=== PATIENT | male | born 1975 | race Caucasian/White ===

== ENCOUNTER → 2018-09-24 08:38 | Outpatient (CLI) | payer OTHER, SELFPAY ==
--- NOTE | 2018-09-24 08:42 | DI.RAD.S_ITS ---
PROCEDURE: XR FOOT RT MIN 3V INDICATIONS: r great toe pain TECHNIQUE: 3 views of the foot were acquired. COMPARISON: None. FINDINGS: Bones: No dislocations. No suspicious bony lesions. There is a transverse fracture through the distal diaphysis of the first proximal phalanx, minimally displaced. Soft tissues: No tibiotalar joint effusion. Achilles tendon appears normal. IMPRESSION: First proximal phalanx fracture distally, but not extending into the articular surface. Near normal anatomic alignment. Dictated by: Abhinav Ybarra M.D. on 09/24/2018 at 8:56 Approved by: Abhinav Ybarra M.D. on 09/24/2018 at 8:58
== END ==
PROVIDERS: Visit Provider Physician Assistant
DX: M79.674 Pain in right toe(s) (principal); S92.911A Unspecified fracture of right toe(s), initial encounter for closed fracture
CPT/HCPCS: 73630

== ENCOUNTER → 2020-12-10 06:55 | Outpatient (CLI) | payer OTHER, SELFPAY ==
[2020-12-10 08:04] LABS: Add Manual Diff / Slide Review NO; Basophils Absolute Auto 100 /uL (0-100); Eosinophils Absolute Auto 300 /uL (0-450); Eosinophils Percent Auto 5.7 % (2-4); Hematocrit 46.3 % (41-53); Hemoglobin 15.7 g/dL (13.5-17.5); Lymphocytes Absolute Auto 1900 /uL (1100-4500); Lymphocytes Percent Auto 33.6 % (25-40); Mean Corpuscular HGB Conc 33.8 % (30-36); Mean Corpuscular Hemoglobin 29.5 PG (26-34); Mean Corpuscular Volume 87.3 fL (80-100); Monocytes Absolute Auto 500 /uL (0-900); Monocytes Percent Auto 9.3 % (3-14); Neutrophils Absolute Auto 2800 /uL (1500-7000); Neutrophils Percent Auto 50.4 % (50-75); Platelet Count 189 X10^3/uL (150-400); Red Cell Distribution Width 13.7 % (11.6-14.8); White Blood Cell Count 5.6 X10^3/uL (4.5-11.0)
[2020-12-10 08:11] LABS: Hemoglobin A1C% w Est Avg Glu 5.5 % (4.0-6.0)
[2020-12-10 08:12] LABS: Alanine Aminotransferase 47 IU/L (<50); Albumin 4.4 g/dL (3.5-5.0); Albumin Globulin Ratio 1.3 (1.0-2.8); Alkaline Phosphatase 49 U/L (38-126); Aspartate Aminotransferase 33 IU/L (17-59); BUN Creatinine Ratio 24.2 (6-22); Bilirubin Total 0.5 mg/dL (0.2-1.3); Blood Urea Nitrogen 22 mg/dL (9-20); Calcium 9.8 mg/dL (8.4-10.2); Carbon Dioxide 32 mmol/L (22-32); Chloride 108 mmol/L (98-107); Cholesterol 237 mg/dL (140-199); Estimated Glomerular Filt Rate > 60.0 mL/min (>60); Globulin 3.3 g/dL (1.7-4.1); Glucose 103 mg/dL (70-100); HDL Cholesterol 35 mg/dL (40-60); HEMOLYSIS < 15 (0-50); LDL Cholesterol Calculated 176 mg/dL (<100); Potassium 4.7 mmol/L (3.4-5.1); Sodium 142 mmol/L (137-145); Total Protein 7.7 g/dL (6.3-8.2); Triglycerides 132 mg/dL (35-150)
== END ==
PROVIDERS: PCP Family Medicine; Referring Provider Family Medicine; Visit Provider Family Medicine
DX: L30.9 Dermatitis, unspecified (principal); M10.9 Gout, unspecified
CPT/HCPCS: 36415; 80053; 80061; 83036; 84550; 85025

== ENCOUNTER 2021-04-01 15:04 | Emergency (ER) | payer OTHER, SELFPAY ==
[2021-04-01 15:12] VITALS: BP 131/89; PULSE 105; RESP 22; TEMP 37.5; O2SAT 95; BMI 43.0
[2021-04-01] MEDS: ACETAMINOPHEN 325 MG TABLET 975 MG PO (16:46)
--- NOTE | 2021-04-01 17:08 | ED_ITS ---
HPI - URI/Sore Throat <PUMA Ng - Last Filed: 04/01/21 21:00> General Chief Complaint: Upper Respiratory Symptoms Stated Complaint: POSITIVE COVID, O2 SATS ARE LOW Time Seen by Provider: 04/01/21 15:36 Source: patient Mode of arrival: Ambulatory Limitations: no limitations Related Data Home Medications Medication Instructions Recorded Confirmed febuxostat [Uloric] PO 09/24/18 12/02/20 Previous Rx's Medication Instructions Recorded triamcinolone acetonide 0.5 % 1 applic TOPICAL BID 7 Days #15 g 11/17/20 topical cream desonide 0.05 % topical cream 1 applic TOPICAL BID PRN #15 g 12/02/20 benzonatate 100 mg capsule 100 mg PO BID PRN #14 cap 04/01/21 (Ivone Crespo) Allergies Allergy/AdvReac Type Severity Reaction Status Date / Time No Known Drug Allergies Allergy Verified 12/02/20 13:36 <Raegan Stevenson MD - Last Filed: 04/01/21 19:09> History of Present Illness HPI Narrative: 45-year-old gentleman with no significant medical history presents with dyspnea on day 10 of his COVID course. His initially tested positive on the and he was negative he began having a significant cough on the and tested positive on the . He has a home oxygen monitor and yesterday notice that his oxygen saturations have been dropping. With walking around the house he had measured saturations as low as 88%. At rest with slow deep breathing he can get up to 98% and seems to be fairly consistently at 95- 96%. He describes myalgias, decreasing fevers, cough, significant fatigue he is no longer having nausea, vomiting no abdominal pain. He describes no significant palpitations. <Raegan Stevenson MD - Last Filed: 04/01/21 19:09> Review of Systems Narrative: Remainder of complete review of systems is otherwise unremarkable except for that included in the HPI. Patient History <PUMA Ng - Last Filed: 04/01/21 21:00> Medical History (Updated 04/01/21 @ 19:08 by Raegan Stevenson MD) Chicken pox COVID-19 determined by clinical diagnostic criteria Fractures (~1994) Gout (~2004) Hyperlipidemia Kidney disease Kidney stones Periorbital dermatitis Poor vision Shoulder pain (~1993) Surgical History Anesthesia History of kidney surgery Family History Father Hypertension Hyperlipidemia Mother Diabetes mellitus Sister Mental health problem Social History Smoking Status: Never smoker Smoking Status: Never smoker Substance Use Type: does not use Exam <PUMA Ng - Last Filed: 04/01/21 21:00> Initial Vital Signs Initial Vital Signs: Vital Signs Temperature 99.5 F 04/01/21 15:12 Pulse Rate 105 H 04/01/21 15:12 Respiratory Rate 22 04/01/21 15:12 Blood Pressure 131/89 04/01/21 15:12 Pulse Oximetry 95 04/01/21 15:12 <Raegan Stevenson MD - Last Filed: 04/01/21 19:09> Narrative Exam Narrative: General: Mildly ill-appearing, in no acute distress. Able to give a complete and coherent history. Well-nourished well-developed HEENT: Moist mucous membranes, normal sclera with reactive pupils, Respiratory: Lungs are clear to auscultation, Full and symmetrical air movement, speaking in full sentences. With 2 minutes of walking in the room saturations go as low as 93 and return to 95-96% as soon as he sits. Cardiac: Regular rate and rhythm no murmurs no bruits Skin: Warm and dry, no rashes Neurologic: Grossly neurologically intact with no obvious asymmetries or abnormalities Extremities: No trauma, well perfused Psych: Cooperative, appropriate insight and affect Initial Vital Signs Initial Vital Signs: Vital Signs Temperature 99.5 F 04/01/21 15:12 Pulse Rate 105 H 04/01/21 15:12 Respiratory Rate 22 04/01/21 15:12 Blood Pressure 131/89 04/01/21 15:12 Pulse Oximetry 95 04/01/21 15:12 Course <PUMA Ng - Last Filed: 04/01/21 21:00> Orders Ordered: ED Orders 04/01/21 18:17 XR chest 1V Stat Discontinued Medications Acetaminophen (Acetaminophen 325 Mg Tablet) 975 mg PO NOW ONE Stop: 04/01/21 16:42 Last Admin: 04/01/21 16:46 Dose: 975 mg Documented by: ALEIDANSO Benzonatate (Benzonatate 100 Mg Capsule) 100 mg PO NOW ONE Stop: 04/01/21 19:10 Last Admin: 04/01/21 19:20 Dose: 100 mg Documented by: OZILA Vital Signs Vital signs: Vital Signs - 8 hr 04/01/21 15:12 04/01/21 18:38 04/01/21 18:40 Temperature 99.5 F 98 F Pulse Rate 105 H 88 Respiratory Rate 22 20 Blood Pressure 131/89 123/75 Pulse Oximetry 95 94 04/01/21 19:00 Temperature Pulse Rate 89 Respiratory Rate Blood Pressure Pulse Oximetry 95 <Raegan Stevenson MD - Last Filed: 04/01/21 19:09> Orders Ordered: ED Orders 04/01/21 18:17 XR chest 1V Stat Discontinued Medications Acetaminophen (Acetaminophen 325 Mg Tablet) 975 mg PO NOW ONE Stop: 04/01/21 16:42 Last Admin: 04/01/21 16:46 Dose: 975 mg Documented by: ALEIDANSO Benzonatate (Benzonatate 100 Mg Capsule) 100 mg PO NOW ONE Stop: 04/01/21 19:10 Last Admin: 04/01/21 19:20 Dose: 100 mg Documented by: ZOILA Vital Signs Vital signs: Vital Signs - 8 hr 04/01/21 15:12 04/01/21 18:38 04/01/21 18:40 Temperature 99.5 F 98 F Pulse Rate 105 H 88 Respiratory Rate 22 20 Blood Pressure 131/89 123/75 Pulse Oximetry 95 94 04/01/21 19:00 Temperature Pulse Rate 89 Respiratory Rate Blood Pressure Pulse Oximetry 95 <Raegan Stevenson MD - Last Filed: 04/01/21 19:09> Imaging Data Chest x-ray: Radiologist's Impression: FINDINGS:? ? Surgical changes and devices:? None.? ? Lungs and pleura:? Low lung volumes are noted. This causes a crowded appearance to the lung markings and limits evaluation.? Bilateral patchy interstitial type infiltrates are seen. No large pneumothorax or large pleural effusions are seen. ? ? Mediastinum:? Mediastinal contours appear normal.? Heart size is normal.? ? Bones and chest wall:? No suspicious bony lesions.? Overlying soft tissues appear unremarkable.? IMPRESSION:? Patchy bilateral interstitial infiltrates are seen, which are consistent with the known clinical history of COVID pneumonia.? ? ? Dictated by: Brown Woodson M.D. on 04/01/2021 at 17:29? ?? MDM Narrative Medical decision making narrative: 45-year-old gentleman currently on day 10 of his COVID symptoms. Oxygen saturations are dipping somewhat but not significantly no enough to warrant hospital admission or oxygen administration at this time. He will continue to monitor oxygen saturations at home and I encouraged him to return should they continue to drop. He is outside the window for monoclonal antibodies at this point. Will give him a prescription for [employer] to help the cough. At this time he is safe for home discharge Discharge Plan Departure Patient Disposition: Home Clinical Impression: COVID-19 Instructions: DI for COVID-19 (Suspected or Confirmed ) Activity Restrictions/Additional Instructions: I am sorry that you have COVID. I am reassured that you are on day 10 of your symptoms and do not need to be in the hospital today. You are outside the window at this time for receiving monoclonal antibodies. Please do continue to monitor your oxygen saturation at home. If your saturation levels are consistently below 90 to even when your sitting at rest with slow deep breathing, please return to the ER. You may also find that resting/sleeping on your stomach helps with breathing as well I have given you a prescription for Tessalon Perles to help control the cough if needed. Prescription was electronically transmitted to [facility] in [place] Prescriptions: New benzonatate [Tessalon Perles] 100 mg capsule 100 mg PO BID PRN (Reason: cough) Qty: 14 RF: 0 No Action febuxostat PO RF: 0 triamcinolone acetonide 0.5 % cream 1 applic topical BID 7 Days Qty: 15 RF: 1 desonide 0.05 % cream 1 applic topical BID PRN (Reason: skin irritation) Qty: 15 RF: 0 Referrals: Sebastián Gibbs MD [Primary Care Provider] -
--- NOTE | 2021-04-01 18:17 | DI.RAD.S_ITS ---
PROCEDURE: XR CHEST 1V INDICATIONS: COIVD TECHNIQUE: One view of the chest was acquired. COMPARISON: None. FINDINGS: Surgical changes and devices: None. Lungs and pleura: Low lung volumes are noted. This causes a crowded appearance to the lung markings and limits evaluation. Bilateral patchy interstitial type infiltrates are seen. No large pneumothorax or large pleural effusions are seen. Mediastinum: Mediastinal contours appear normal. Heart size is normal. Bones and chest wall: No suspicious bony lesions. Overlying soft tissues appear unremarkable. IMPRESSION: Patchy bilateral interstitial infiltrates are seen, which are consistent with the known clinical history of COVID pneumonia. Dictated by: Brown Woodson M.D. on 04/01/2021 at 17:29 Approved by: Brown Woodson M.D. on 04/01/2021 at 17:29
[2021-04-01 18:38] VITALS: BP 123/75; PULSE 88; RESP 20; O2SAT 94
[2021-04-01 18:40] VITALS: TEMP 36.6
[2021-04-01 19:00] VITALS: PULSE 89; O2SAT 95
[2021-04-01] MEDS: BENZONATATE 100 MG CAPSULE PO (19:20)
== END 2021-04-01 19:26 | disposition home or self-care (01) ==
PROVIDERS: Emergency Provider Emergency Medicine; PCP Family Medicine
DX: U07.1 COVID-19 (principal)
CPT/HCPCS: 71045; 99283

== ENCOUNTER 2021-04-05 09:10 | Inpatient (IN) | payer OTHER, SELFPAY ==
[2021-04-05] VITALS (16 sets, daily range): BP systolic 113–137; BP diastolic 74–91; PULSE 86–99; RESP 18–21; TEMP 36.2–37.6; O2SAT 89–96; BMI 43.0
--- NOTE | 2021-04-05 09:37 | DI.RAD.S_ITS ---
PROCEDURE: XR CHEST 1V INDICATIONS: COVID + shortness of breath TECHNIQUE: One view of the chest was acquired. COMPARISON: [facility], CR, XR CHEST 1V, 04/01/2021, 18:12. FINDINGS: Surgical changes and devices: None. Lungs and pleura: Bilateral airspace disease similar to the prior study. Mediastinum: Mediastinal contours appear normal. Heart size is normal. Bones and chest wall: No suspicious bony lesions. Overlying soft tissues appear unremarkable. IMPRESSION: No significant change in bilateral airspace disease when compared with 04/01/2021 examination. Dictated by: Edin Addison M.D. on 04/05/2021 at 10:04 Approved by: Edin Addison M.D. on 04/05/2021 at 10:05
--- NOTE | 2021-04-05 10:14 | ED_ITS ---
HPI - SOB/Dyspnea General Chief Complaint: Shortness of Breath/Dyspnea Stated Complaint: Difficulty breathing Time Seen by Provider: 04/05/21 09:35 Source: patient Mode of arrival: Family Vehicle Limitations: no limitations History of Present Illness HPI Narrative: Patient is a 45-year-old male with known history of prior kidney problem, he has a known COVID diagnosis presenting today with increasing shortness of breath. He started having symptoms of COVID on 03/22/2021 he tested positive on March 24. He has been monitoring his oxygen at home this is 2nd visit to the ED he was previously seen on 04/01/2021 for low oxygen numbers. At that time home oxygen was as low as 88% but in the ED 95-96%. He says oxygen has dropped at home to 86% he tries to lay on his side he is unable to lay on his stomach and prone. Current O2 is 90 to 92% on room air while lying on his back. He overall feels significantly weak and more short of breath. He continues to have fever and body aches. No headache or dizziness. Related Data Home Medications Medication Instructions Recorded Confirmed febuxostat [Uloric] 80 mg PO 09/24/18 12/02/20 Previous Rx's Medication Instructions Recorded triamcinolone acetonide 0.5 % 1 applic TOPICAL BID 7 Days #15 g 11/17/20 topical cream desonide 0.05 % topical cream 1 applic TOPICAL BID PRN #15 g 12/02/20 benzonatate 100 mg capsule 100 mg PO BID PRN #14 cap 04/01/21 (Ivone Crespo) Allergies Allergy/AdvReac Type Severity Reaction Status Date / Time No Known Drug Allergies Allergy Verified 04/05/21 09:36 Review of Systems Review of Systems Narrative: GENERAL: Fever, fatigue, generalized weakness HEENT: Denies sinus pain, ear pain, sore throat, difficulty swallowing, neck pain RESPIRATORY: See HPI CARDIOVASCULAR: Denies chest pain, palpitations, orthopnea, edema GASTROINTESTINAL: Denies nausea, vomiting, abdominal pain, diarrhea, constipation, melena. : Denies dysuria, frequency, incontinence, hematuria, urinary retention, flank pain. MUSCULOSKELETAL: Denies weakness, joint pain, or bony pain SKIN: No rash, no erythema, no pruritus NEUROLOGIC: Denies weakness, dizziness, headache, numbness, change in speech, co nfusion PSYCHIATRIC: No concerning psychosocial issues. 12 point review of systems is negative except for those stated above and HPI Patient History Medical History Chicken pox COVID-19 determined by clinical diagnostic criteria Fractures (~1994) Gout (~2004) Hyperlipidemia Kidney disease Kidney stones Periorbital dermatitis Poor vision Shoulder pain (~1993) Surgical History Anesthesia History of kidney surgery Family History Father Hypertension Hyperlipidemia Mother Diabetes mellitus Sister Mental health problem Social History household members: spouse, family and children Smoking Status: Never smoker Smoking Status: Never smoker Substance Use Type: does not use Exam Initial Vital Signs Initial Vital Signs: Vital Signs Temperature 98.8 F 04/05/21 09:15 Pulse Rate 92 H 04/05/21 09:15 Respiratory Rate 20 04/05/21 09:15 Blood Pressure 129/91 H 04/05/21 09:15 Pulse Oximetry 91 04/05/21 09:15 GENERAL: Alert male BMI 43 mild distress HEENT: Head atraumatic,EOMI, pupils reactive, face symmetric, moist mucous membranes CARDIOVASCULAR: Regular rate and rhythm without murmurs, rubs or gallops. RESPIRATORY: Slightly coarse breath sounds bilaterally mild respiratory distress ABDOMEN: Soft, nontender. Normoactive bowel sounds all 4 quadrants. No guarding or rebound. EXTREMITIES: Normal range of motion, no clubbing or edema. Neurovascularly intact NEUROLOGICAL: Alert and oriented x4.Normal gait and speech. SKIN: Warm, dry, no laceration, no petechiae, no rashes or lesions. Course Orders Ordered: ED Orders 04/05/21 09:37 XR chest 1V Stat EKG-12 Lead Stat 04/05/21 10:00 Complete Blood Count AUTO DIFF Stat Comprehensive Metabolic Panel Stat Lactate (Lactic Acid) Stat NT-proBNP (BNP-Adult 18+) Stat Procalcitonin Stat Troponin & CK Cardiac Panel Stat 04/05/21 11:30 D Dimer Stat Acetaminophen (Acetaminophen 325 Mg Tablet) 650 mg PO Q6HR PRN PRN Reason: Fever/Mild Pain (1-3) Hydrocodone Bitart/Acetaminophen (Hydrocodone/Acet 5/325 Tablet) 1 tab PO Q4HR PRN PRN Reason: Pain, Moderate (4-6) Al Hydrox/Mg Hydrox/Simethicone (Mag Hydrox/Alum/Simeth 30 Ml Udc) 30 ml PO Q6HR PRN PRN Reason: Dyspepsia Bisacodyl (Bisacodyl 10 Mg Supp) 10 mg [place] DAILY PRN PRN Reason: Constipation Dexamethasone (Dexamethasone 10 Mg/Ml Vial) 6 mg IV DAILY [facility] Docusate Sodium (Docusate 100 Mg Capsule) 100 mg PO BID [facility] Enoxaparin Sodium (Enoxaparin 40 Mg/0.4 Ml Syringe) 40 mg SUBCUT DAILY [facility] Guaifenesin/Codeine Phosphate (Codeine/Guaifenesin Liquid 5ml Udc) 10 ml PO Q6H PRN PRN Reason: Cough Remdesivir 100 mg/ Sodium (Chloride) 250 mls @ 250 mls/hr IV DAILY [facility] Stop: 04/09/21 09:59 Ibuprofen (Ibuprofen 600 Mg Tablet) 600 mg PO Q6HR PRN PRN Reason: Fever/Mild Pain (1-3) Naloxone HCl (Naloxone 0.4 Mg/Ml Vial) 0.2 mg IV Q2MIN PRN PRN Reason: Opiate Reversal Ondansetron HCl (Ondansetron 4 Mg/2 Ml Inj) 4 mg IV Q8HR PRN PRN Reason: Nausea And Vomiting Discontinued Medications Dexamethasone (Dexamethasone 10 Mg/Ml Vial) 6 mg IV NOW ONE Stop: 04/05/21 12:14 Last Admin: 04/05/21 13:02 Dose: 6 mg Documented by: AMBAR Remdesivir 200 mg/ Sodium (Chloride) 250 mls @ 250 mls/hr IV NOW ONE Stop: 04/05/21 12:14 Last Admin: 04/05/21 14:58 Dose: 250 mls/hr Documented by: LION Vital Signs Vital signs: Vital Signs - 8 hr 04/05/21 11:00 04/05/21 11:30 04/05/21 11:31 Pulse Rate 96 H 91 H 90 Blood Pressure 127/78 136/88 Pulse Oximetry 92 93 89 L 04/05/21 12:00 04/05/21 12:30 Pulse Rate 93 H 93 H Blood Pressure 137/89 133/86 Pulse Oximetry 91 93 MDM - SOB/Dyspnea Lab Data Result diagrams: 04/05/21 10:00 04/05/21 10:00 Labs: Lab Results 04/05/21 04/05/21 04/05/21 Range/Units 10:00 10:00 10:00 WBC 6.2 (4.5-11.0) X10^3/uL RBC 5.36 (4.5-5.9) X10^6/uL Hgb 15.8 (13.5-17.5) g/dL Hct 45.0 (41-53) % MCV 84.0 (80-100) fL MCH 29.5 (26-34) PG MCHC 35.2 (30-36) % RDW 13.3 (11.6-14.8) % Plt Count 229 (150-400) X10^3/uL Neut % (Auto) 66.8 (50-75) % Lymph % (Auto) 17.3 L (25-40) % Walsh % (Auto) 14.9 H (3-14) % Eos % (Auto) 0.7 L (2-4) % Baso % (Auto) 0.3 (0-2) % Neut # (Auto) 4200 (8776-1992) /uL Lymph # (Auto) 1100 (6882-5221) /uL Walsh # (Auto) 900 (0-900) /uL Eos # (Auto) 0 (0-450) /uL Baso # (Auto) 0 (0-100) /uL D-Dimer (<230) ng/mL Sodium 137 (137-145) mmol/L Potassium 4.1 (3.4-5.1) mmol/L Chloride 98 (98-107) mmol/L Carbon Dioxide 30 (22-32) mmol/L BUN 14 (9-20) mg/dL Creatinine 0.90 (0.66-1.25) mg/dL Estimated GFR > 60.0 (>60) mL/min BUN/Creatinine Ratio 15.6 (6-22) Glucose 102 H (70-100) mg/dL Lactate (0.7-2.1) mmol/L Calcium 9.2 (8.4-10.2) mg/dL Ferritin (18-464) ng/mL Total Bilirubin 0.9 (0.2-1.3) mg/dL AST 79 H (17-59) IU/L ALT 88 H (<50) IU/L Alkaline Phosphatase 52 (38-126) U/L Total Creatine Kinase 218 H (55-170) U/L CK-MB (CK-2) 0.65 (<2.37) ng/mL CK-MB (CK-2) Rel Index 0.3 L (1.5-5.0) % Troponin I < 0.012 (0.01-0.034) ng/mL NT-Pro-B Natriuret Pep 23 (<125) pg/mL Total Protein 7.6 (6.3-8.2) g/dL Albumin 4.0 (3.5-5.0) g/dL Globulin 3.6 (1.7-4.1) g/dL Albumin/Globulin Ratio 1.1 (1.0-2.8) Procalcitonin 0.11 (<0.5) ng/mL 04/05/21 04/05/21 04/05/21 Range/Units 10:00 10:00 11:30 WBC (4.5-11.0) X10^3/uL RBC (4.5-5.9) X10^6/uL Hgb (13.5-17.5) g/dL Hct (41-53) % MCV (80-100) fL MCH (26-34) PG MCHC (30-36) % RDW (11.6-14.8) % Plt Count (150-400) X10^3/uL Neut % (Auto) (50-75) % Lymph % (Auto) (25-40) % Walsh % (Auto) (3-14) % Eos % (Auto) (2-4) % Baso % (Auto) (0-2) % Neut # (Auto) (0272-1587) /uL Lymph # (Auto) (8348-6285) /uL Walsh # (Auto) (0-900) /uL Eos # (Auto) (0-450) /uL Baso # (Auto) (0-100) /uL D-Dimer 561 H (<230) ng/mL Sodium (137-145) mmol/L Potassium (3.4-5.1) mmol/L Chloride (98-107) mmol/L Carbon Dioxide (22-32) mmol/L BUN (9-20) mg/dL Creatinine (0.66-1.25) mg/dL Estimated GFR (>60) mL/min BUN/Creatinine Ratio (6-22) Glucose (70-100) mg/dL Lactate 1.1 (0.7-2.1) mmol/L Calcium (8.4-10.2) mg/dL Ferritin 1850 H (18-464) ng/mL Total Bilirubin (0.2-1.3) mg/dL AST (17-59) IU/L ALT (<50) IU/L Alkaline Phosphatase (38-126) U/L Total Creatine Kinase (55-170) U/L CK-MB (CK-2) (<2.37) ng/mL CK-MB (CK-2) Rel Index (1.5-5.0) % Troponin I (0.01-0.034) ng/mL NT-Pro-B Natriuret Pep (<125) pg/mL Total Protein (6.3-8.2) g/dL Albumin (3.5-5.0) g/dL Globulin (1.7-4.1) g/dL Albumin/Globulin Ratio (1.0-2.8) Procalcitonin (<0.5) ng/mL Imaging Data Chest x-ray: Radiologist's Impression: PROCEDURE:? XR CHEST 1V ? INDICATIONS:? COVID + shortness of breath ? TECHNIQUE:? One view of the chest was acquired.? ? COMPARISON:? [facility], , XR CHEST 1V, 04/01/2021, 18:12. ? FINDINGS:? ? Surgical changes and devices:? None.? ? Lungs and pleura:? Bilateral airspace disease similar to the prior study.? ? Mediastinum:? Mediastinal contours appear normal.? Heart size is normal.? ? Bones and chest wall:? No suspicious bony lesions.? Overlying soft tissues appear unremarkable.? ? IMPRESSION:? No significant change in bilateral airspace disease when compared with 04/01/2021 examination. ? ? Dictated by: Edin Addison M.D. on 04/05/2021 at 10:04 ? ? Approved by: Edin Addison M.D. on 04/05/2021 at 10:05 ECG Data Interpretation: Sinus rhythm 152 QRS [address] changes T-wave inversion noted in lead 3 no priors to compare MDM Narrative Medical decision making narrative: Patient's oxygen [place] is 88-91% while at rest. It certainly improve with positioning. However this is patient's 2nd visit he continues to have low O2. Discussed with him medications such as dexamethasone and Remdesivir this time he is declining room this pneumonia based on his kidney issue even though his GFR and renal function appears normal on labs. Dr. silveira of the patient's symptoms and test results. Discharge Plan Departure Patient Disposition: Admitted As Inpatient Clinical Impression: COVID-19 Admit Date/Time: 04/05/21 12:46 Admit Provider: Jenifer Silveira
--- NOTE | 2021-04-05 10:17 | PC.NURSE ---
Covid + on 03/24, feels that he has had increasing SOB with exertion.
[2021-04-05 10:55] LABS: Add Manual Diff / Slide Review NO; Basophils Absolute Auto 0 /uL (0-100); Basophils Percent Auto 0.3 % (0-2); Eosinophils Absolute Auto 0 /uL (0-450); Eosinophils Percent Auto 0.7 % (2-4); Hemoglobin 15.8 g/dL (13.5-17.5); Lymphocytes Absolute Auto 1100 /uL (1100-4500); Lymphocytes Percent Auto 17.3 % (25-40); Mean Corpuscular HGB Conc 35.2 % (30-36); Mean Corpuscular Hemoglobin 29.5 PG (26-34); Monocytes Absolute Auto 900 /uL (0-900); Monocytes Percent Auto 14.9 % (3-14); Neutrophils Absolute Auto 4200 /uL (1500-7000); Neutrophils Percent Auto 66.8 % (50-75); Platelet Count 229 X10^3/uL (150-400); Red Blood Cell Count 5.36 X10^6/uL (4.5-5.9); Red Cell Distribution Width 13.3 % (11.6-14.8); White Blood Cell Count 6.2 X10^3/uL (4.5-11.0)
[2021-04-05 11:02] LABS: Alanine Aminotransferase 88 IU/L (<50); Albumin Globulin Ratio 1.1 (1.0-2.8); Alkaline Phosphatase 52 U/L (38-126); Aspartate Aminotransferase 79 IU/L (17-59); BUN Creatinine Ratio 15.6 (6-22); Bilirubin Total 0.9 mg/dL (0.2-1.3); Blood Urea Nitrogen 14 mg/dL (9-20); Calcium 9.2 mg/dL (8.4-10.2); Carbon Dioxide 30 mmol/L (22-32); Chloride 98 mmol/L (98-107); Creatine Kinase 218 U/L (55-170); Estimated Glomerular Filt Rate > 60.0 mL/min (>60); Globulin 3.6 g/dL (1.7-4.1); Glucose 102 mg/dL (70-100); HEMOLYSIS < 15 (0-50); Potassium 4.1 mmol/L (3.4-5.1); Sodium 137 mmol/L (137-145); Total Protein 7.6 g/dL (6.3-8.2)
[2021-04-05 11:03] LABS: Lactate (Lactic Acid) 1.1 mmol/L (0.7-2.1)
[2021-04-05 11:13] LABS: NT-proBNP (BNP-Adult 18+) 23 pg/mL (<125); Troponin I < 0.012 ng/mL (0.01-0.034)
[2021-04-05 11:17] LABS: CKMB % Relative Index 0.3 % (1.5-5.0); Creatine Kinase MB 0.65 ng/mL (<2.37)
[2021-04-05 11:19] LABS: Procalcitonin 0.11 ng/mL (<0.5)
[2021-04-05 11:52] LABS: D Dimer 561 ng/mL (<230)
[2021-04-05] MEDS: DEXAMETHASONE 10 MG/ML VIAL 6 MG IV (13:02)
--- NOTE | 2021-04-05 14:54 | PM.HP.1 ---
History of Present Illness History of Present Illness Date Patient Seen: 04/05/21 Time Patient Seen: 14:55 Chief complaint: Difficulty breathing,Covid + Narrative: Patient is a 45-year-old male with a history of psoriasis, gout, hyperlipidemia, history of kidney stones, who became symptomatic from COVID on March 21. Patient reports his was diagnosed with COVID on March 21. He is unvaccinated. Patient reports that he finally was seen on about the where his COVID test was positive. He was seen again on April 01 in the emergency room for hypoxia. Patient was given Tessalon Perles and discharged home. He continued to have worsening shortness of breath cough and fever. He presented to the hospital again today. Patient had a chest x-ray which showed bilateral infiltrates. He was hypoxic with a room air sat of 89%. Patient was admitted to the hospital for inpatient treatment of acute respiratory failure secondary to COVID pneumonia. Patient does report temperature to 102, cough which at times is productive, poor appetite, but no loss of taste or smell. He has had some diarrhea, but he denies nausea vomiting. He has had no hematemesis. No joint pains. No rashes. 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 Patient History Medical History Chicken pox COVID-19 determined by clinical diagnostic criteria Fractures (~1994) Gout (~2004) Hyperlipidemia Kidney disease Kidney stones Periorbital dermatitis Poor vision Shoulder pain (~1993) Surgical History Anesthesia History of kidney surgery Family & Social History Family History Father Hypertension Hyperlipidemia Mother Diabetes mellitus Sister Mental health problem Social History: household members spouse,family,children Prior Living Arrangements House Safety & Behavioral: Feels Safe in Current Yes Environment Been Physically Hurt or No Threatened By a Person Suicidal Ideation Description None Tobacco & Substance use: Smoking Status Never smoker alcohol intake frequency holiday/special occasion Substance Use Type does not use Meds Home Medications and Allergies Home Medications Medication Instructions Recorded Confirmed Type febuxostat [Uloric] PO 09/24/18 12/02/20 History triamcinolone acetonide 0.5 % 1 applic TOPICAL BID 7 Days #15 g 11/17/20 12/02/20 Rx topical cream desonide 0.05 % topical cream 1 applic TOPICAL BID PRN #15 g 12/02/20 12/02/20 Rx benzonatate 100 mg capsule 100 mg PO BID PRN #14 cap 04/01/21 Rx (Tessalon Perlmichel) Allergies Allergy/AdvReac Type Severity Reaction Status Date / Time No Known Drug Allergies Allergy Verified 04/05/21 09:36 Review of Systems Review of Systems Narrative: 10 point review of systems is negative Exam Vital Signs (past 8 hours): - 04/05/21 09:15 04/05/21 10:16 04/05/21 10:30 Temperature 98.8 F Pulse Rate 92 H 95 H 92 H Respiratory Rate 20 Blood Pressure 129/91 H Pulse Oximetry 91 91 91 04/05/21 10:31 04/05/21 11:00 04/05/21 11:30 Temperature Pulse Rate 94 H 96 H 91 H Respiratory Rate Blood Pressure 124/74 127/78 Pulse Oximetry 90 L 92 93 04/05/21 11:31 04/05/21 12:00 04/05/21 12:30 Temperature Pulse Rate 90 93 H 93 H Respiratory Rate Blood Pressure 136/88 137/89 133/86 Pulse Oximetry 89 L 91 93 04/05/21 13:00 04/05/21 13:01 04/05/21 13:29 Temperature 99.7 F H Pulse Rate 98 H 99 H 90 Respiratory Rate 18 Blood Pressure 136/88 122/86 Pulse Oximetry 94 93 91 Oxygen Delivery Method Room Air Oxygen Flow Rate 0 Narrative Exam Narrative: Pleasant male resting in bed somewhat short of breath and coughing HENMT Other: HEENT: Normocephalic atraumatic, extraocular muscles are intact, oropharynx reveals moist mucous membranes, Resp Other: Lungs: Decreased breath sounds with occasional scattered crackles Cardio Other: Cardiac exam: Regular rate and rhythm normal S1-S2 GI Other: Abdomen: Soft nontender nondistended Neuro Other: Neuro exam is nonfocal Extrem Other: No lower extremity edema Psych Other: Patient is awake and alert, no anxiety, no delusions, and no hallucinations Objective Labs Result Diagrams: 04/05/21 10:00 04/05/21 10:00 Labs: Laboratory Results - last 24 hr 04/05/21 04/05/21 04/05/21 10:00 10:00 10:00 WBC 6.2 RBC 5.36 Hgb 15.8 Hct 45.0 MCV 84.0 MCH 29.5 MCHC 35.2 RDW 13.3 Plt Count 229 Neut % (Auto) 66.8 Lymph % (Auto) 17.3 L [place] % (Auto) 14.9 H Eos % (Auto) 0.7 L Baso % (Auto) 0.3 Neut # (Auto) 4200 Lymph # (Auto) 1100 [place] # (Auto) 900 Eos # (Auto) 0 Baso # (Auto) 0 D-Dimer Sodium 137 Potassium 4.1 Chloride 98 Carbon Dioxide 30 BUN 14 Creatinine 0.90 Estimated GFR > 60.0 BUN/Creatinine Ratio 15.6 Glucose 102 H Lactate Calcium 9.2 Total Bilirubin 0.9 AST 79 H ALT 88 H Alkaline Phosphatase 52 Total Creatine Kinase 218 H CK-MB (CK-2) 0.65 CK-MB (CK-2) Rel Index 0.3 L Troponin I < 0.012 NT-Pro-B Natriuret Pep 23 Total Protein 7.6 Albumin 4.0 Globulin 3.6 Albumin/Globulin Ratio 1.1 Procalcitonin 0.11 04/05/21 04/05/21 10:00 11:30 WBC RBC Hgb Hct MCV MCH MCHC RDW Plt Count Neut % (Auto) Lymph % (Auto) [place] % (Auto) Eos % (Auto) Baso % (Auto) Neut # (Auto) Lymph # (Auto) [place] # (Auto) Eos # (Auto) Baso # (Auto) D-Dimer 561 H Sodium Potassium Chloride Carbon Dioxide BUN Creatinine Estimated GFR BUN/Creatinine Ratio Glucose Lactate 1.1 Calcium Total Bilirubin AST ALT Alkaline Phosphatase Total Creatine Kinase CK-MB (CK-2) CK-MB (CK-2) Rel Index Troponin I NT-Pro-B Natriuret Pep Total Protein Albumin Globulin Albumin/Globulin Ratio Procalcitonin Assessment & Plan Assessment & Plan narrative: 45-year-old male admitted to the hospital with acute respiratory failure secondary to COVID pneumonia -chest x-ray shows bilateral alveolar infiltrate -PCR positive 04/01, will repeat here -continue Decadron 6 mg daily and remdesivir -oxygen as needed -will check ferritin, C-reactive protein, and respiratory smear -patient indicates he would like to be a full code, in the event he requires intubation such that he would need tracheostomy for long-term respiratory treatment the patient agrees to that as well -patient is unvaccinated, however he does want vaccination once he is eligible to have that Periorbital psoriasis -continue as needed desonide topical cream as needed Gout -continue Uloric Patient reports his is his surrogate decision maker Patient reports he is a full code will note that his record accordingly Patient is admitted as an inpatient Have utilized all available means to review update and confirm patient's current medications Time Spent With Patient Critical Care time: I spent a total of [] minutes of critical care time on this patient's care today; this time is exclusive of procedural time. Quality VTE Deep Vein Thrombosis/Pulmonary Embolism Present on Admission: No
[2021-04-05] MEDS: REMDESIVIR 200 MG in SODIUM CHLORIDE 0.9% 210 ML 250 ML IV (14:58)
--- NOTE | 2021-04-05 15:23 | PC.NURSE ---
Pt transferred to the floor from ED at 1430; O2 RA=91%, O2 2L=94%; dry cough; bl ls throughout diminished; Tele monitor initiated but V-lead not working and PM shift RN notified; Remdesivir infusing; pt tolerates prone position; pt demonstrates proper IS use and instructed to use q 1 hour; this RN spoke with pt's spouse, Purnima who expresses concern about pt's liver and kidney function r/t hx of gout medication; notified
[2021-04-05 17:19] LABS: Ferritin 1850 ng/mL (18-464)
[2021-04-05 18:52] LABS: Adenovirus Not Detected (Not Detect); Coronavirus 229E Not Detected (Not Detect); Coronavirus HKU1 Not Detected (Not Detect); Coronavirus NL 63 Not Detected (Not Detect); Coronavirus OC43 Not Detected (Not Detect); Human Metapneumovirus Not Detected (Not Detect)
--- NOTE | 2021-04-05 18:52 | PC.NURSE ---
1600: patient alert, oriented. voices needs. no SOB/dysnea. reports occasional [employer] cough. no desat noted. tolerating RA. diminished lung sounds to lower lobes. tolerating prone. percussion to lower lobes, encouraged IS use. 1900: tolerating IV antiviral thru PIV. denies ASE. reports I feel better than I have in a long time. seems to have a brighter facade, tolerating ambulating short distances in room. patient asked if is allowed to bring him food, reviewed visitor policy w/ patient, and spoke w/ mosaic floor layer. at this time they both understand the rules for visitation.
[2021-04-05 18:53] LABS: B. parapertussis Not Detected (Not Detecte); Bordetella pertussis Not Detected (Not Detecte); Chlamydophila pneumoniae Not Detected (Not Detect); Human Rhinovirus/Enterovirus Not Detected (Not Detect); Influenza A Not Detected (Not Detect); Influenza B Not Detected (Not Detect); Mycoplasma pneumoniae Not Detected (Not Detect); Parainfluenza Virus 1 Not Detected (Not Detect); Parainfluenza Virus 2 Not Detected (Not Detect); Parainfluenza Virus 3 Not Detected (Not Detect); Parainfluenza Virus 4 Not Detected (Not Detect); Respiratory Syncytial Virus Not Detected (Not Detect)
[2021-04-05 18:56] LABS: SARS- CoV-2 Detected (Not Detecte)
[2021-04-06 02:29] VITALS: BP 122/84; PULSE 84; RESP 20; TEMP 36.4; O2SAT 97
[2021-04-06 08:00] VITALS: BP 129/89; PULSE 78; RESP 16; TEMP 36.8; O2SAT 95
[2021-04-06 08:47] VITALS: O2SAT 92
[2021-04-06 09:10] LABS: Add Manual Diff / Slide Review NO; Basophils Absolute Auto 0 /uL (0-100); Basophils Percent Auto 0.4 % (0-2); Eosinophils Absolute Auto 0 /uL (0-450); Eosinophils Percent Auto 0.1 % (2-4); Hematocrit 44.6 % (41-53); Hemoglobin 15.5 g/dL (13.5-17.5); Lymphocytes Absolute Auto 900 /uL (1100-4500); Lymphocytes Percent Auto 18.3 % (25-40); Mean Corpuscular HGB Conc 34.8 % (30-36); Mean Corpuscular Hemoglobin 29.4 PG (26-34); Mean Corpuscular Volume 84.5 fL (80-100); Monocytes Absolute Auto 600 /uL (0-900); Neutrophils Absolute Auto 3400 /uL (1500-7000); Neutrophils Percent Auto 68.2 % (50-75); Platelet Count 257 X10^3/uL (150-400); Red Blood Cell Count 5.28 X10^6/uL (4.5-5.9); Red Cell Distribution Width 13.3 % (11.6-14.8)
[2021-04-06 09:30] LABS: Alanine Aminotransferase 95 IU/L (<50); Albumin 3.9 g/dL (3.5-5.0); Albumin Globulin Ratio 1.1 (1.0-2.8); Alkaline Phosphatase 47 U/L (38-126); Aspartate Aminotransferase 57 IU/L (17-59); BUN Creatinine Ratio 21.3 (6-22); Bilirubin Total 0.6 mg/dL (0.2-1.3); Blood Urea Nitrogen 19 mg/dL (9-20); Calcium 9.3 mg/dL (8.4-10.2); Carbon Dioxide 30 mmol/L (22-32); Chloride 99 mmol/L (98-107); Estimated Glomerular Filt Rate > 60.0 mL/min (>60); Globulin 3.5 g/dL (1.7-4.1); Glucose 117 mg/dL (70-100); HEMOLYSIS < 15 (0-50); Potassium 4.2 mmol/L (3.4-5.1); Sodium 137 mmol/L (137-145); Total Protein 7.4 g/dL (6.3-8.2)
[2021-04-06] MEDS: ENOXAPARIN 40 MG/0.4 ML SYRINGE SUBCUT (10:07)
[2021-04-06] MEDS: DEXAMETHASONE 10 MG/ML VIAL 6 MG IV (10:08)
[2021-04-06] MEDS: DOCUSATE 100 MG CAPSULE PO (10:08)
[2021-04-06 10:10] VITALS: O2SAT 97
[2021-04-06] MEDS: REMDESIVIR 100 MG in SODIUM CHLORIDE 0.9% 230 ML 250 ML IV (10:25)
[2021-04-06 12:00] VITALS: PULSE 74; RESP 18; TEMP 36.9; O2SAT 95
--- NOTE | 2021-04-06 15:26 | PC.NURSE ---
Spouse called, reported pt had been seen by Dr Silveira and would be discharged. Pt O2 sats were 90-91 RA at rest, 88% RA w/activity, On O2 at 2L RA sats at rest were 97%, On O2 w/activity sats were 91-92%. Pt has been using oxygen as he feels more comfortable with same and less sob. Will have Dr. Silveira contact spouse. Pt does have a freq loose sounding cough. Non prod. Likes to keep hob sl elevated. Questions of spouse were answered. Will have Dr. Silveira see pt.
--- NOTE | 2021-04-06 16:29 | P.DS_ITS ---
History of Present Illness History of Present Illness Chief complaint: Difficulty breathing,Covid + Narrative: Patient is a 45-year-old male with a history of psoriasis, gout, hyperlipidemia, history of kidney stones, who became symptomatic from COVID on March 21. Patient reports his was diagnosed with COVID on March 21. He is unvaccinated. Patient reports that he finally was seen on about the where his COVID test was positive. He was seen again on April 01 in the emergency room for hypoxia. Patient was given Tessalon Perles and discharged home. He continued to have worsening shortness of breath cough and fever. He presented to the hospital again today. Patient had a chest x-ray which showed bilateral infiltrates. He was hypoxic with a room air sat of 89%. Patient was admitted to the hospital for inpatient treatment of acute respiratory failure secondary to COVID pneumonia. Patient does report temperature to 102, cough which at times is productive, poor appetite, but no loss of taste or smell. He has had some diarrhea, but he denies nausea vomiting. He has had no h ematemesis. No joint pains. No rashes. 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 Discharge Providers Provider Date of admission: 04/05/21 12:46 Discharge Date: 04/06/21 Primary care physician: Sebastián Gibbs MD Discharge provider: Jenifer Silveira MD Summary Hospital Course Discharge Diagnosis: 1. ACUTE RESPIRATORY FAILURE SECONDARY TO COVID PNEUMONIA 2. Periorbital psoriasis Hospital Course: Patient was admitted to the hospital for acute respiratory failure secondary to COVID pneumonia. His O2 sat at rest was 89%. Patient was given Decadron and remdesivir. The following day his breathing and oxygenation improved. His room air saturation at rest was 90-91%. With activity he desaturated to 88%. On 2 L when walking he was 91-92%. And at rest on 2 L he was 97%. The patient will be discharged home on 2 L of oxygen. He will follow- up with his PCP for further evaluation. At the time of this dictation he was in no acute distress and deemed appropriate for discharge home. Status at Discharge Cognitive/behavioral status at discharge: oriented Overall status at discharge: patient is progressing back to baseline Exam Vital Signs (past 8 hours): - 04/06/21 08:47 04/06/21 10:10 04/06/21 12:00 Temperature 98.4 F Pulse Rate 74 Respiratory Rate 18 Pulse Oximetry 92 97 95 Oxygen Delivery Method Nasal Cannula Oxygen Flow Rate 2 Narrative Exam Narrative: Pleasant male in no acute distress Resp Other: Decreased breath sounds but clear to auscultation Cardio Other: Cardiac exam: Regular rate and rhythm normal S1-S2 GI Other: Abdomen: Soft and nontender Extrem Other: Extremities no edema Objective Labs Result Diagrams: 04/06/21 08:40 04/06/21 08:40 Labs: Laboratory Results - last 24 hr 04/05/21 04/05/21 04/06/21 10:00 14:30 08:40 WBC 5.0 RBC 5.28 Hgb 15.5 Hct 44.6 MCV 84.5 MCH 29.4 MCHC 34.8 RDW 13.3 Plt Count 257 Neut % (Auto) 68.2 Lymph % (Auto) 18.3 L [place] % (Auto) 13.0 Eos % (Auto) 0.1 L Baso % (Auto) 0.4 Neut # (Auto) 3400 Lymph # (Auto) 900 L [place] # (Auto) 600 Eos # (Auto) 0 Baso # (Auto) 0 Sodium Potassium Chloride Carbon Dioxide BUN Creatinine Estimated GFR BUN/Creatinine Ratio Glucose Calcium Ferritin 1850 H Total Bilirubin AST ALT Alkaline Phosphatase Total Protein Albumin Globulin Albumin/Globulin Ratio Chlamy pneumoniae PCR Not detected Adenovirus (PCR) Not detected B. pertussis DNA (PCR) Not detected B.parapertussis DNA PCR Not detected Coronavirus OC43 (PCR) Not detected Coronavirus HKU1 (PCR) Not detected Coronavirus 229E (PCR) Not detected SARS-CoV-2 (PCR) Detected H Coronavirus NL63 (PCR) Not detected Human Metapneumovir PCR Not detected Influenza Type A (PCR) Not detected Influenza Type B (PCR) Not detected M. pneumoniae (PCR) Not detected Parainfluenza 1 (PCR) Not detected Parainfluenza 2 (PCR) Not detected Parainfluenza 3 (PCR) Not detected Parainfluenza 4 (PCR) Not detected RSV (PCR) Not detected Entero/Rhino (PCR) Not detected 04/06/21 08:40 WBC RBC Hgb Hct MCV MCH MCHC RDW Plt Count Neut % (Auto) Lymph % (Auto) [place] % (Auto) Eos % (Auto) Baso % (Auto) Neut # (Auto) Lymph # (Auto) [place] # (Auto) Eos # (Auto) Baso # (Auto) Sodium 137 Potassium 4.2 Chloride 99 Carbon Dioxide 30 BUN 19 Creatinine 0.89 Estimated GFR > 60.0 BUN/Creatinine Ratio 21.3 Glucose 117 H Calcium 9.3 Ferritin Total Bilirubin 0.6 AST 57 ALT 95 H Alkaline Phosphatase 47 Total Protein 7.4 Albumin 3.9 Globulin 3.5 Albumin/Globulin Ratio 1.1 Chlamy pneumoniae PCR Adenovirus (PCR) B. pertussis DNA (PCR) B.parapertussis DNA PCR Coronavirus OC43 (PCR) Coronavirus HKU1 (PCR) Coronavirus 229E (PCR) SARS-CoV-2 (PCR) Coronavirus NL63 (PCR) Human Metapneumovir PCR Influenza Type A (PCR) Influenza Type B (PCR) M. pneumoniae (PCR) Parainfluenza 1 (PCR) Parainfluenza 2 (PCR) Parainfluenza 3 (PCR) Parainfluenza 4 (PCR) RSV (PCR) Entero/Rhino (PCR) [facility] Medical History Chicken pox COVID-19 determined by clinical diagnostic criteria Fractures (~1994) Gout (~2004) Hyperlipidemia Kidney disease Kidney stones Periorbital dermatitis Poor vision Shoulder pain (~1993) Surgical History Anesthesia History of kidney surgery Family History Father Hypertension Hyperlipidemia Mother Diabetes mellitus Sister Mental health problem Social History household members: spouse, family and children Smoking Status: Never smoker Discharge Assessment & Plan Assessment and Plan Assessment: 1. Acute hypoxic respiratory failure secondary to COVID pneumonia Plan of Treatment: Discharge home on 2 L of oxygen Discharge Plan Discharge Plan Patient Disposition: Home Discharge orders & Medications Prescriptions: Continued benzonatate [Tessalon Perles] 100 mg capsule 100 mg PO BID PRN (Reason: cough) Qty: 14 RF: 0 desonide [Tridesilon] 0.05 % cream 1 applic topical BID PRN (Reason: skin irritation) RF: 0 triamcinolone acetonide [Triderm] 0.5 % cream 1 applic topical BID RF: 0 Follow up/Referrals: Sebastián Gibbs MD [Primary Care Provider] - Discharge Health Status Multidrug resistant organism: No MDRO Diet/Activity/Treatments Diet: Regular Skin/Wound/Dressing Care Report to your healthcare provider any signs of infection, such as:: chills, fever Visit Report/Discharge Packet Instructions: Home Oxygen Therapy, How to Measure Oxygen Saturation via Pulse Oximetry, How to Perform Oxygen Therapy via Cannula, DI for COVID-19 (Suspected or Confirmed ) Discharge Data Primary Care Provider: Sebastián Gibbs Quality VTE Deep Vein Thrombosis/Pulmonary Embolism Present on Admission: No
--- NOTE | 2021-04-06 17:24 | CM.DANOTE ---
DCP/Brief: Reviewed chart. Patient is a 45yr old male admitted to [facility] for SOB related to COVID. PCP is Sebastián Gibbs. Primary payor 1)[employer]. Patient currently in precautions due to COVID. CHANGE ANALYST did not attempt to see patient today. Anticipate d/c home when medically stable. P:Home when stable. Continue to follow up. [facility] Discharge Planning/Care Management CM Discharge Assessment Start: 04/06/21 17:19 Freq: Status: Active Protocol: Document 04/06/21 17:20 KJ (Rec: 04/06/21 17:24 [facility] [id number]) Discharge Planning Assessment Assigned Data Programmer SHAISTA Castano Contact Information Mitchel Olvera (spouse) ph# Advance Directives? No History Provided By Medical Record Prior Living Arrangements House Household Members spouse,family,children Type of transporation used prior to Drives own vehicle admit Independent with ADL's Yes Is patient alert and oriented? Yes Barriers to Discharge No Discharge Plan Home Transportation Arrangement Family? Referrals Initiated Other Additional Comment At this time d/c planning needs unknown. CM team to continue to follow. Review Status In Process Next Review Type Continued Stay Review
--- NOTE | 2021-04-07 16:36 | PC.NURSE ---
called stating patients oxygen never arrived. Pt's RA sats both resting and amb have been 92% or greater. He is coughing but he seems to be doing well, she is just wanting the oxygen to be sure she doesn't need to return to the hospital. Dr. Silveira notified. She is unable to order O2 now since pt has been d/c. Pt can either go to ED or see if his pcp can arrange. Pt's pcp staff called at [facility]. Notified of situation. Maria De Jesus took call and she said she would be sure md would get message and would facilitate pt getting oxygen. Pt spouse called back. She reports her does seem to be doing okay at this time but she is aware they can come to the ED at anytime. Pcp office has been notified and they will see if they can get O2 ordered for pt.
== END 2021-04-06 18:30 | disposition home or self-care (01) | DRG 177 ==
LOC: ED 09:35 → AC 12:47
PROVIDERS: Admitting Provider Internal Medicine; Emergency Provider Emergency Medicine; PCP Family Medicine; Referring Provider Emergency Medicine; Visit Provider Internal Medicine
DX: U07.1 COVID-19 (principal); J12.82 Pneumonia due to coronavirus disease 2019; J96.00 Acute respiratory failure, unspecified whether with hypoxia or hypercapnia; M10.9 Gout, unspecified; L40.8 Other psoriasis
CPT/HCPCS: 36415; 71045; 80053; 82550; 82553; 82728; 82962; 83605; 83880; 84145; 84484; 85025; 85379; 87633; 93005; 94762; 96374; 99284; J1100; J1650

== ENCOUNTER → 2021-04-12 16:08 | Outpatient (CLI) | payer OTHER, SELFPAY ==
[2021-04-11 09:20] VITALS: BMI 43.0
[2021-04-12 16:50] LABS: COVID19 -Nasal RAPID POSITIVE (Negative)
== END ==
PROVIDERS: PCP Family Medicine; Visit Provider Family Medicine
DX: U07.1 COVID-19 (principal)
CPT/HCPCS: 87635

== ENCOUNTER → 2021-04-13 10:34 | Outpatient (CLI) | payer OTHER, SELFPAY ==
[2021-04-11 09:20] VITALS: BMI 43.0
--- NOTE | 2021-04-13 10:43 | DI.US.S_ITS ---
PROCEDURE: US PERIPH VENOUS UP EXTREM LT INDICATIONS: PAIN, EDEMA POST IV TECHNIQUE: Real-time imaging, as well as color and pulse Doppler interrogation, was performed of the left upper extremity deep veins from the inferior neck to the antecubital fossa. COMPARISON: None. FINDINGS: There are occlusive filling defects in the left brachial vein consistent with DVT. The internal jugular vein, visualized portions of the subclavian vein and axillary vein are free of intraluminal thrombus. IMPRESSION: Positive for DVT involving the left brachial vein. The preliminary result was communicated with RUT Collazo in referring physician's office. Dictated by: Leeanne Hernandez M.D. on 04/13/2021 at 11:50 Approved by: Leeanne Hernandez M.D. on 04/13/2021 at 11:56
== END ==
PROVIDERS: PCP Family Medicine; Referring Provider Family Medicine; Visit Provider Family Medicine
DX: U07.1 COVID-19 (principal); M79.602 Pain in left arm; I82.622 Acute embolism and thrombosis of deep veins of left upper extremity; M79.89 Other specified soft tissue disorders
CPT/HCPCS: 93971

== ENCOUNTER → 2021-04-19 08:16 | Outpatient (CLI) | payer OTHER, SELFPAY ==
[2021-04-11 09:20] VITALS: BMI 43.0
[2021-04-19 08:51] LABS: Add Manual Diff / Slide Review NO; Basophils Absolute Auto 100 /uL (0-100); Basophils Percent Auto 0.6 % (0-2); Eosinophils Absolute Auto 200 /uL (0-450); Eosinophils Percent Auto 1.6 % (2-4); Hematocrit 45.3 % (41-53); Hemoglobin 15.4 g/dL (13.5-17.5); Lymphocytes Absolute Auto 2100 /uL (1100-4500); Lymphocytes Percent Auto 19.9 % (25-40); Mean Corpuscular HGB Conc 34.1 % (30-36); Mean Corpuscular Hemoglobin 29.2 PG (26-34); Mean Corpuscular Volume 85.7 fL (80-100); Monocytes Absolute Auto 1200 /uL (0-900); Monocytes Percent Auto 11.5 % (3-14); Neutrophils Absolute Auto 7000 /uL (1500-7000); Neutrophils Percent Auto 66.4 % (50-75); Platelet Count 235 X10^3/uL (150-400); Red Blood Cell Count 5.29 X10^6/uL (4.5-5.9); Red Cell Distribution Width 13.5 % (11.6-14.8); White Blood Cell Count 10.6 X10^3/uL (4.5-11.0)
[2021-04-19 09:32] LABS: Alanine Aminotransferase 62 IU/L (<50); Albumin 4.5 g/dL (3.5-5.0); Albumin Globulin Ratio 1.4 (1.0-2.8); Alkaline Phosphatase 57 U/L (38-126); Aspartate Aminotransferase 29 IU/L (17-59); BUN Creatinine Ratio 19.8 (6-22); Bilirubin Total 0.8 mg/dL (0.2-1.3); Blood Urea Nitrogen 20 mg/dL (9-20); Calcium 10.1 mg/dL (8.4-10.2); Carbon Dioxide 27 mmol/L (22-32); Chloride 103 mmol/L (98-107); Cholesterol 244 mg/dL (140-199); Estimated Glomerular Filt Rate > 60.0 mL/min (>60); Globulin 3.3 g/dL (1.7-4.1); Glucose 96 mg/dL (70-100); HDL Cholesterol 37 mg/dL (40-60); HEMOLYSIS < 15 (0-50); LDL Cholesterol Calculated 163 mg/dL (<100); Potassium 4.9 mmol/L (3.4-5.1); Sodium 141 mmol/L (137-145); Total Protein 7.8 g/dL (6.3-8.2); Triglycerides 222 mg/dL (35-150)
== END ==
PROVIDERS: PCP Family Medicine; Referring Provider Family Medicine; Visit Provider Family Medicine
DX: E78.2 Mixed hyperlipidemia (principal); M10.9 Gout, unspecified
CPT/HCPCS: 36415; 80053; 80061; 84550; 85025

== ENCOUNTER → 2021-04-20 13:26 | Outpatient (CLI) | payer OTHER, SELFPAY ==
[2021-04-11 09:20] VITALS: BMI 43.0
--- NOTE | 2021-04-20 13:27 | DI.CT.S_ITS ---
PROCEDURE: CT ANGIO CHEST PE PROTOCOL INDICATIONS: Elevated D Dimer, SOB TECHNIQUE: After the administration of intravenous contrast, 2 mm thick sections acquired from the pulmonary apices to the posterior costophrenic angles. 3-dimensional maximum intensity projection (MIP) coronal and sagittal reformats were then acquired through the thorax. For radiation dose reduction, the following was used: automated exposure control, adjustment of mA and/or kV according to patient size. COMPARISON: [facility], CR, XR CHEST 1V, 04/05/2021, 9:51. FINDINGS: Image quality: Limited due to suboptimal opacification of central pulmonary arteries and respiratory motion artifacts. Pulmonary arteries: Pulmonary arteries are normal in size. There are filling defects in right upper lobe posterior segment and left upper lobe anterior segment segmental arteries, suggesting pulmonary embolism. Lungs and pleura: Bilateral patchy airspace infiltrates consistent with atypical pneumonia. No pleural effusions or pneumothorax. Central and peripheral airways are patent. Mediastinum: Heart size is normal, without pericardial effusion. Slightly prominent mediastinal or hilar lymph nodes are most likely reactive. Thoracic aorta is normal in caliber and enhancement. Esophagus is normal in caliber. Small hiatal hernia. Bones and chest wall: No suspicious bony lesions. Ribs and thoracic spine appear intact throughout. Thyroid gland is normal. No axillary or supraclavicular adenopathy. Abdomen: There is hepatomegaly. There are multiple right renal calculi. There is right renal cortical thinning. IMPRESSION: 1. Limited examination due to suboptimal opacification of central pulmonary arteries and respiratory motion artifacts. Suspect small pulmonary emboli involving the right upper lobe and left upper lobe segmental arteries. 2. Bilateral patchy airspace infiltrates compatible with atypical pneumonia. 3. Hepatomegaly. 4. Multiple right renal calculi. There is renal cortical thinning. Right kidney is partially visualized. A renal ultrasound is suggested for follow-up . Dictated by: Leeanne Hernandez M.D. on 04/20/2021 at 14:17 Approved by: Leeanne Hernandez M.D. on 04/20/2021 at 14:27
== END ==
PROVIDERS: PCP Family Medicine; Referring Provider Family Medicine; Visit Provider Family Medicine
DX: U07.1 COVID-19 (principal); R79.89 Other specified abnormal findings of blood chemistry; N20.0 Calculus of kidney; R16.0 Hepatomegaly, not elsewhere classified
CPT/HCPCS: 71275; Q9967

== ENCOUNTER → 2021-05-04 15:39 | Outpatient (CLI) | payer OTHER, SELFPAY ==
[2021-04-11 09:20] VITALS: BMI 43.0
--- NOTE | 2021-05-04 15:40 | DI.ECHO.S_ITS ---
[facility]---------+ [facility] +---------+ : : [address] : : : : [id number] : : : : Phone: [phone]+ Echocardiogram Report + + :Name: SHIRA PENG JR Study Date: 05/04/2021 Height: 71 in : :[facility] ReadingLocation: Weight: 285 lb : : Gender: Male BSA: 2.5 m2 : :: 1975 Age: 45 yrs BP: 153/97 mmHg: :Reason For Study: PE AND PERSISTENT TACHYCARDIA : :Ordering Physician: RAMAN, : :TRINITY Performed By: Soledad Dobbins : :Referring: TRINITY CAMARGO : + + Interpretation Summary The left ventricular cavity is small. The ejection fraction is estimated to be 60-65%. The right ventricle is normal in size and function. No significant valvular pathology seen. Procedure: A two-dimensional transthoracic echocardiogram with color flow and Doppler was performed. The study quality was technically difficult. A contrast injection of Definity was performed to improve assessment of LV function. There is no prior echocardiogram noted for this patient. The patient was in sinus rhythm with heart rates between 90-106 bpm during the exam. Left Ventricle: The left ventricular cavity is small. Proximal septal thickening is noted. There is no echo evidence for significant left ventricular outflow tract obstruction. There is no thrombus. The ejection fraction is estimated to be 60-65%. There are no focal wall motion abnormalities. Diastolic function could not be accurately assessed due to tachycardia. Right Ventricle: The right ventricle is normal in size and function. Atria: Both atria are normal in size. There is no Doppler evidence for an interatrial shunt. Mitral Valve: There is mild mitral annular calcification. There is no mitral regurgitation noted. Aortic Valve: The aortic valve is trileaflet. The aortic valve opens well. There is no aortic valve stenosis. No aortic regurgitation is present. Tricuspid Valve: The tricuspid valve is normal in structure and function. There is trace tricuspid regurgitation. Pulmonary artery pressures cannot be estimated because of the lack of a measurable TR jet velocity. Pulmonic Valve: The pulmonic valve is not well seen, but is grossly normal. There is no pulmonic valvular regurgitation. Great Vessels: The aortic root is normal size. The dimensions of the ascending aorta are normal. The inferior vena cava was not well visualized. Pericardium/ Pleura There is no pericardial effusion. There is no pleural effusion. MMode/2D Measurements & Calculations LVIDd: 3.5 cm LVOT diam: 2.2 cm LVIDs: 2.5 cm Ao root diam: 3.6 cm FS: 29.0 % asc Aorta Diam: 3.1 cm IVSd: 1.1 cm Ao Arch Diam (Prox Trans): 3.0 cm LVPWd: 0.98 cm LV liang. diameter/BSA (cm/m^2): 1.4 LV sys. diameter/BSA (cm/m^2): 1.0 LA A2 area: 18.6 cm2 RA long axis: 5.7 cm LA A4 area: 16.1 cm2 RA area: 17.9 cm2 LA length (vol): 5.6 cm RA vol: 47.8 ml LA vol: 45.2 ml RA : 19.5 ml/m2 LA vol index: 18.4 ml/m2 RVD1 (basal): 3.5 cm TAPSE: 1.9 cm Doppler Measurements & Calculations Ao V2 max: 131.5 cm/sec LVOT Max Evan: 89.6 cm/sec Ao V2 mean: 93.4 cm/sec LV V1 max P.2 mmHg Ao max P.9 mmHg LV V1 VTI: 15.8 cm Ao mean P.8 mmHg ALEX(I,D): 2.4 cm2 Ao V2 VTI: 24.2 cm ALEX(V,D): 2.5 cm2 sev ratio: 0.65 ALEX indexed to BSA (cm^2/m^2): 0.99 Med Peak E' Evan: 7.6 cm/sec PA V2 max: 121.5 cm/sec Lat Peak E' Evan: 14.9 cm/sec PA V2 mean: 84.3 cm/sec PA mean P.2 mmHg PA pr(Accel): 41.3 mmHg SV(LVOT): 58.9 ml Reading Physician:10:38 AM
== END ==
PROVIDERS: PCP Family Medicine; Referring Provider Family Medicine; Visit Provider Family Medicine
DX: I26.99 Other pulmonary embolism without acute cor pulmonale (principal); R00.0 Tachycardia, unspecified
CPT/HCPCS: 93306; Q9957

== ENCOUNTER → 2022-01-18 07:47 | Outpatient (CLI) | payer OTHER, SELFPAY ==
[2021-04-11 09:20] VITALS: BMI 43.0
== END ==
PROVIDERS: PCP Family Medicine; Visit Provider Nurse Practitioner Family
DX: R10.9 Unspecified abdominal pain (principal)
CPT/HCPCS: 87086

== ENCOUNTER 2022-08-10 16:09 | Emergency (ER) | payer OTHER, SELFPAY ==
[2021-04-11 09:20] VITALS: BMI 43.0
[2022-08-10 16:15] VITALS: BP 138/92; PULSE 108; RESP 20; TEMP 36.9; O2SAT 99; BMI 43.7
--- NOTE | 2022-08-10 16:36 | DI.US.S_ITS ---
PROCEDURE: [facility] VENOUS UP EXTREM LT INDICATIONS: pain TECHNIQUE: Real-time imaging, as well as color and pulse Doppler interrogation, was performed of the left upper extremity deep veins from the inferior neck to the antecubital fossa. COMPARISON: [facility], , [facility] VENOUS UP EXTREM LT, 04/13/2021, 11:14. FINDINGS: The internal jugular vein, visualized portions of the subclavian vein, axillary, and brachial veins are free of intraluminal thrombus. Where physically possible, the veins are normally compressible. Color and pulse Doppler demonstrate normal intraluminal flow, with expected phasicity and pulsatility. Additional scanning of the cephalic and basilic veins of the superficial system demonstrate normal compressibility, without thrombus. IMPRESSION: No evidence of left upper extremity DVT. Dictated by: Maylin Cochran M.D. on 08/10/2022 at 18:00 Approved by: Maylin Cochran M.D. on 08/10/2022 at 18:00
--- NOTE | 2022-08-10 18:35 | ED_ITS ---
HPI - Extremity Problem General Chief complaint: Extremity Injury, Upper Stated complaint: something wrong with left arm ,no known injury Time Seen by Provider: 08/10/22 18:17 Source: patient Mode of arrival: Ambulatory History of Present Illness HPI Narrative: 47-year-old male some day smoker presents with a chief complaint of pain and swelling in his left arm, largely the left elbow with swelling in his left hand over the course of the day. He states he denies any specific or obvious injury. He does have a history of DVT that was associated with a COVID infection and is concerned about the potential of clot. He states he does have a history of an elbow fracture but denies any recent trauma, injury or obvious overuse. He denies any numbness, tingling or weakness. He denies any head or neck pain. He is had no systemic complaints such as fever, chills nor nausea or vomiting. His pain is worse with flexion and extension at the elbow as well as palpation overlying the olecranon. He denies redness, warmth and states that the swelling is significantly improved over what it looked like earlier today Related Data Home Medications Medication Instructions Recorded Confirmed desonide 0.05 % topical cream 1 applic topical BID PRN skin 04/05/21 01/18/22 (Tridesilon) irritation febuxostat 80 mg tablet 80 mg PO DAILY 04/21/21 01/18/22 Allergies Allergy/AdvReac Type Severity Reaction Status Date / Time No Known Drug Allergies Allergy Verified 08/10/22 16:22 Review of Systems Review of Systems Narrative: GENERAL: Denies chills, fatigue, malaise, fever, sweats. HEENT: Denies sinus pain, ear pain, sore throat, difficulty swallowing, dizziness. RESPIRATORY: Denies dyspnea, cough, wheezing, hemoptysis, sputum. CARDIOVASCULAR: Denies chest pain, palpitations, orthopnea, edema, GASTROINTESTINAL: Denies nausea, vomiting, abdominal pain, diarrhea, constipation, melena. : Denies dysuria, frequency, incontinence, hematuria, urinary retention. MUSCULOSKELETAL: See HPI SKIN: Denies rash, skin lesions, or other NEUROLOGIC: Denies weakness, headache, numbness, change in speech, confusion, seizures, incoordination. PSYCHIATRIC: No concerning psychosocial issues. 12 point review of systems is negative except for those stated above Patient History Medical History Chicken pox COVID-19 determined by clinical diagnostic criteria Fractures (~1994) Gout (~2004) Hyperlipidemia Kidney disease Kidney stones Periorbital dermatitis Poor vision Pulmonary embolism Shoulder pain (~1993) Surgical History Anesthesia History of kidney surgery Family History Father Hypertension Hyperlipidemia Mother Diabetes mellitus Sister Mental health problem Social History household members: spouse, family and children Smoking Status: Current some day smoker alcohol intake: current (very occasionally) substance use type: does not use Smoking Status: Current some day smoker alcohol intake frequency: holidays/special occasions only Substance Use Type: does not use Exam Narrative Exam Narrative: GENERAL: [47] year old patient appears stated age. Well-developed patient, in mild distress. HEAD: Atraumatic. Normocephalic. EYES: Pupils equal round and reactive. Extraocular motions intact. No scleral icterus. No injection or drainage. ENT: Nose without bleeding, purulent drainage. Throat without erythema, tonsillar hypertrophy or exudate. Airway patent. NECK: Trachea midline. Non tender CARDIOVASCULAR: Regular rate and rhythm without murmurs, gallops, or rubs. RESPIRATORY: Clear to auscultation. Breath sounds equal bilaterally. No wheezes, rales, or rhonchi. GASTROINTESTINAL: Abdomen soft, non-tender, nondistended. EXTREMITIES: Minimal if any swelling, compartment soft of left upper extremity, there is no warmth or erythema, no fluctuance or induration, no lymphangitis, no obvious deformity. He has full but painful range of motion with flexion, extension as well as pronation and supination at the elbow. Sensation and cap refill are intact BACK: Nontender without deformity or crepitance. No flank tenderness. NEURO: AOx3. SKIN: No rash or erythema of visible areas Initial Vital Signs Initial Vital Signs: Vital Signs Temperature 98.5 F 08/10/22 16:15 Pulse Rate 108 H 08/10/22 16:15 Respiratory Rate 20 08/10/22 16:15 Blood Pressure 138/92 H 08/10/22 16:15 Pulse Oximetry 99 08/10/22 16:15 Oxygen Delivery Method Room Air 08/10/22 16:15 Course Orders Ordered: ED Orders 08/10/22 16:36 US periph venous up extrem lt Stat Vital Signs Vital signs: Vital Signs - 8 hr 08/10/22 16:15 Temperature 98.5 F Pulse Rate 108 H Respiratory Rate 20 Blood Pressure 138/92 H Pulse Oximetry 99 Oxygen Delivery Method Room Air MDM - Extremity (Nontraumatic) MDM Narrative Medical decision making narrative: [47] year old patient presents with arm pain in the absence of obvious injury, Multiple etiologies for patient's symptoms considered including, but not limited to: [Musculoskeletal, sprain, strain, fracture, dislocation, DVT, cellulitis, gout versus other] Prior Charts reviewed in our EMR Primary Historian: patient Labs reviewed and interpreted by myself: None obtained Imaging reviewed: Ultrasound without suggestion of fluid collection or DVT. X- ray ordered but patient left Against Medical Advice prior to completing Discharge Plan Departure Patient Disposition: Left Against Medical Advice Clinical Impression: Patient left after triage Prescriptions: No Action febuxostat 80 mg tablet 80 mg PO DAILY desonide [Tridesilon] 0.05 % cream 1 applic topical BID PRN (Reason: skin irritation) Stand Alone Forms: Against Medical Advice
--- NOTE | 2022-08-10 19:14 | PC.NURSE ---
no answer in waiting room at 1726, 1735, 1800 and 1900
--- NOTE | 2022-08-10 20:06 | PC.NURSE ---
Pt picked up red phone in [facility] and wondered if he was forgotten. I informed pt that staff attempted multiple times to bring him into the ED and no one responded when his name was called. Pt put back on tracker and brought back to the next clean room
== END 2022-08-10 21:14 | disposition left against medical advice (07) ==
PROVIDERS: Emergency Provider Emergency Medicine; PCP Family Medicine; Referring Provider Family Medicine
DX: M79.602 Pain in left arm (principal)
CPT/HCPCS: 93971; 99281

== ENCOUNTER → 2022-09-07 13:10 | Outpatient (CLI) | payer OTHER, SELFPAY ==
[2021-04-11 09:20] VITALS: BMI 43.0
--- NOTE | 2022-09-07 13:11 | DI.RAD.S_ITS ---
PROCEDURE: XR ELBOW LT MIN 3V INDICATIONS: pain TECHNIQUE: 3 views of the elbow were acquired. COMPARISON: None. FINDINGS: Bones: No fractures or dislocations. No suspicious bony lesions. Soft tissues: No elbow joint effusion. No suspicious soft tissue calcifications. IMPRESSION: No elbow fracture or dislocation. No joint effusion. Dictated by: Chapin Turner M.D. on 09/07/2022 at 16:15 Approved by: Chapin Turner M.D. on 09/07/2022 at 16:16
== END ==
PROVIDERS: PCP Family Medicine; Referring Provider Nurse Practitioner Family; Visit Provider Nurse Practitioner Family
DX: M25.522 Pain in left elbow (principal)
CPT/HCPCS: 73080

== ENCOUNTER → 2022-10-27 08:51 | Outpatient (CLI) | payer OTHER, SELFPAY ==
[2021-04-11 09:20] VITALS: BMI 43.0
[2022-10-27 10:30] LABS: Add Manual Diff / Slide Review NO; Basophils Absolute Auto 100 /uL (0-100); Basophils Percent Auto 0.8 % (0-2); Eosinophils Absolute Auto 200 /uL (0-450); Eosinophils Percent Auto 2.4 % (2-4); Hemoglobin 16.1 g/dL (13.5-17.5); Lymphocytes Absolute Auto 1900 /uL (1100-4500); Lymphocytes Percent Auto 22.7 % (25-40); Mean Corpuscular HGB Conc 34.9 % (30-36); Mean Corpuscular Hemoglobin 30.3 PG (26-34); Mean Corpuscular Volume 86.6 fL (80-100); Monocytes Absolute Auto 700 /uL (0-900); Monocytes Percent Auto 8.6 % (3-14); Neutrophils Absolute Auto 5500 /uL (1500-7000); Neutrophils Percent Auto 65.5 % (50-75); Platelet Count 209 X10^3/uL (150-400); Red Blood Cell Count 5.31 X10^6/uL (4.5-5.9); Red Cell Distribution Width 13.7 % (11.6-14.8); White Blood Cell Count 8.4 X10^3/uL (4.5-11.0)
[2022-10-27 10:36] LABS: Alanine Aminotransferase 79 IU/L (<50); Albumin 4.6 g/dL (3.5-5.0); Albumin Globulin Ratio 1.5 (1.0-2.8); Alkaline Phosphatase 64 U/L (38-126); Aspartate Aminotransferase 42 IU/L (17-59); Bilirubin Total 0.9 mg/dL (0.2-1.3); Blood Urea Nitrogen 20 mg/dL (9-20); Calcium 9.3 mg/dL (8.4-10.2); Carbon Dioxide 28 mmol/L (22-32); Chloride 105 mmol/L (98-107); Cholesterol 248 mg/dL (140-199); Estimated Glomerular Filt Rate > 60 mL/min (>60); Globulin 3.1 g/dL (1.7-4.1); Glucose 97 mg/dL (70-100); HDL Cholesterol 33 mg/dL (40-60); HEMOLYSIS < 15 (0-50); LDL Cholesterol Calculated 194 mg/dL (<100); Potassium 4.5 mmol/L (3.4-5.1); Sodium 141 mmol/L (137-145); Total Protein 7.7 g/dL (6.3-8.2); Triglycerides 103 mg/dL (35-150)
[2022-10-28 02:32] LABS: x Labcorp Estim. Avg Glu (eAG) 120 mg/dL (.); x Labcorp Hemoglobin A1c 5.8 % (4.8-5.6)
== END ==
PROVIDERS: PCP Family Medicine; Referring Provider Family Medicine; Visit Provider Family Medicine
DX: E78.5 Hyperlipidemia, unspecified (principal); I26.99 Other pulmonary embolism without acute cor pulmonale; M10.9 Gout, unspecified; Q61.3 Polycystic kidney, unspecified
CPT/HCPCS: 36415; 80053; 80061; 83036; 85025

== ENCOUNTER → 2022-11-10 15:29 | Outpatient (CLI) | payer OTHER, SELFPAY ==
[2021-04-11 09:20] VITALS: BMI 43.0
--- NOTE | 2022-11-10 15:30 | DI.ECHO.S_ITS ---
[place] [facility]---------+ [facility] +---------+ : : [address] [place] [place] : : : : [id number] : : : : Phone: [phone]+ Echocardiogram Report + + :Name: SHIRA PENG JR Study Date: 11/10/2022 Height: 71 in : :[facility] ReadingLocation: Weight: 300 lb : : Gender: Male BSA: 2.5 m2 : :: 1975 Age: 47 yrs BP: 128/96 mmHg: :Reason For Study: Tachycardia : :Ordering Physician: Bernie, : :Sebastián Performed By: Shelli Brenner : :Referring: SEBASTIÁN CAMARGO : + + Interpretation Summary 1) Normal left ventricular thickness, size, wall motion, and systolic function (EF 55-60%). 2) Mildly enlarged right ventricle with normal function. 3) No significant valvular abnormalities. 4) Compared to the Echo 05/04/2021, no significant change. Procedure: A two-dimensional transthoracic echocardiogram with color flow and Doppler was performed. The study quality was technically difficult. Comparison is made with the echocardiogram of 05/04/2021. A contrast injection of Definity was performed to improve assessment of LV function. The patient was in normal sinus rhythm during the exam. Left Ventricle: The left ventricle is normal in size and wall thickness. The ejection fraction is estimated to be 55-60%. Left ventricular systolic function appears normal without focal wall motion abnormalities. Diastolic parameters suggest a relaxation abnormality of the left ventricle, consistent with probable normal filling pressures. Right Ventricle: The right ventricle is mildly dilated. The right ventricular systolic function is normal. Atria: The left atrial size is normal. Right atrial size is normal. There is no Doppler evidence for an interatrial shunt. Mitral Valve: The mitral valve is normal. There is no mitral valve stenosis. There is no mitral regurgitation noted. Aortic Valve: The aortic valve is trileaflet. The aortic valve opens well. There is no aortic valve stenosis. No aortic regurgitation is present. Tricuspid Valve: The tricuspid valve is normal. There is no tricuspid stenosis. There is trace tricuspid regurgitation. Pulmonary artery pressures cannot be estimated because of the lack of a measurable TR jet velocity. Pulmonic Valve: The pulmonic valve leaflets are thin and pliable; valve motion is normal. There is no pulmonic valvular stenosis. There is no pulmonic valvular regurgitation. Great Vessels: The aortic root is normal size. The ascending aorta is normal in size. The pulmonary artery is normal size. The inferior vena cava was not well visualized. Pericardium/ Pleura There is no pericardial effusion. There is no pleural effusion. MMode/2D Measurements & Calculations LVIDd: 4.6 cm LVOT diam: 2.1 cm LVIDs: 3.3 cm Ao root diam: 3.7 cm FS: 28.3 % asc Aorta Diam: 3.3 cm IVSd: 1.1 cm LVPWd: 1.2 cm LV liang. diameter/BSA (cm/m^2): 1.8 LV sys. diameter/BSA (cm/m^2): 1.3 LA A2 area: 15.8 cm2 RA long axis: 5.5 cm LA A4 area: 17.5 cm2 RA area: 12.0 cm2 LA length (vol): 4.8 cm RA vol: 22.2 ml LA vol: 49.1 ml RA : 8.9 ml/m2 LA vol index: 19.6 ml/m2 RVD1 (basal): 4.2 cm LVLs ap4: 6.7 cm LVLd ap2: 9.1 cm TAPSE_phl: 2.5 cm LVLs ap2: 6.7 cm Doppler Measurements & Calculations Ao V2 max: 116.0 cm/sec LVOT Max Evan: 93.3 cm/sec Ao V2 mean: 81.9 cm/sec LV V1 max P.5 mmHg Ao max P.0 mmHg LV V1 VTI: 20.8 cm Ao mean P.0 mmHg ALEX(I,D): 3.1 cm2 Ao V2 VTI: 23.1 cm ALEX(V,D): 2.8 cm2 sev ratio: 0.90 ALEX indexed to BSA (cm^2/m^2): 1.2 MV E max evan: 82.5 cm/sec PA V2 max: 93.1 cm/sec MV A max evan: 87.9 cm/sec PA V2 mean: 67.6 cm/sec MV E/A: 0.94 PA mean P.0 mmHg Med Peak E' Evan: 8.9 cm/sec PA pr(Accel): 37.6 mmHg E/E' med: 9.3 Lat Peak E' Evan: 13.5 cm/sec E/E' lat: 6.1 E/e' average: 7.7 MV dec time: 0.22 sec SV(LVOT): 72.0 ml AV VR_phl: 0.80 Reading Physician:03:32 PM
== END ==
PROVIDERS: PCP Family Medicine; Referring Provider Family Medicine; Visit Provider Family Medicine
DX: R00.0 Tachycardia, unspecified (principal); Z86.711 Personal history of pulmonary embolism; R53.83 Other fatigue; I51.7 Cardiomegaly
CPT/HCPCS: 93306; Q9957

== ENCOUNTER → 2023-01-19 08:41 | Outpatient (CLI) | payer OTHER, SELFPAY ==
[2021-04-11 09:20] VITALS: BMI 43.0
[2023-01-20 06:53] LABS: Cholesterol,Total 247 mg/dL (100-199); HDL Cholesterol 41 mg/dL (>39); LDL Cholesterol Cal 189 mg/dL (0-99); Triglycerides 96 mg/dL (0-149); VLDL Cholesterol Cal 17 mg/dL (5-40)
== END ==
PROVIDERS: PCP Family Medicine; Referring Provider Family Medicine; Visit Provider Family Medicine
DX: E78.2 Mixed hyperlipidemia (principal)
CPT/HCPCS: 36415; 80061

== ENCOUNTER → 2024-01-18 10:34 | Outpatient (CLI) | payer OTHER, SELFPAY ==
[2021-04-11 09:20] VITALS: BMI 43.0
[2024-01-18 11:51] LABS: Hemoglobin A1C% w Est Avg Glu 5.7 % (4.0-6.0)
[2024-01-18 11:55] LABS: Alanine Aminotransferase 106 IU/L (<50); Albumin 4.7 g/dL (3.5-5.0); Albumin Globulin Ratio 1.7 (1.0-2.8); Alkaline Phosphatase 50 U/L (38-126); Aspartate Aminotransferase 50 IU/L (17-59); BUN Creatinine Ratio 18.4 (6-22); Bilirubin Total 0.8 mg/dL (0.2-1.3); Blood Urea Nitrogen 21 mg/dL (9-20); Calcium 9.5 mg/dL (8.4-10.2); Carbon Dioxide 27 mmol/L (22-32); Chloride 108 mmol/L (98-107); Cholesterol 119 mg/dL (140-199); Estimated Glomerular Filt Rate > 60 mL/min (>60); Globulin 2.8 g/dL (1.7-4.1); Glucose 92 mg/dL (70-100); HDL Cholesterol 29 mg/dL (40-60); HEMOLYSIS < 15 (0-50); LDL Cholesterol Calculated 75 mg/dL (<100); Potassium 4.6 mmol/L (3.4-5.1); Sodium 143 mmol/L (137-145); Total Protein 7.5 g/dL (6.3-8.2); Triglycerides 73 mg/dL (35-150)
== END ==
PROVIDERS: PCP Family Medicine; Referring Provider Family Medicine; Visit Provider Family Medicine
DX: E78.5 Hyperlipidemia, unspecified (principal); R00.0 Tachycardia, unspecified; R73.03 Prediabetes
CPT/HCPCS: 36415; 80053; 80061; 83036

== ENCOUNTER → 2024-04-11 09:07 | Outpatient (CLI) | payer OTHER, SELFPAY ==
[2021-04-11 09:20] VITALS: BMI 43.0
--- NOTE | 2024-04-11 09:09 | DI.RAD.S_ITS ---
PROCEDURE: XR CHEST 2V INDICATIONS: Chronic cough TECHNIQUE: 2 views of the chest were acquired. COMPARISON: [facility], CR, XR CHEST 1V, 04/05/2021, 9:51. FINDINGS: Heart, mediastinum and pulmonary vascular: Heart is normal in size and configuration. Mediastinum is unremarkable. Pulmonary vascular is normal. Lungs: Mild bibasilar airspace likely atelectasis Pleural spaces: Normal-no effusions or pneumothorax. Bones and soft tissues: Normal IMPRESSION: Mild bibasilar atelectasis Dictated by: Gary Nuñez M.D. on 04/14/2024 at 10:42 Approved by: Gary Nuñez M.D. on 04/14/2024 at 10:43
[2024-04-11 10:07] LABS: Alanine Aminotransferase 93 IU/L (<50); Albumin 4.8 g/dL (3.5-5.0); Albumin Globulin Ratio 1.8 (1.0-2.8); Alkaline Phosphatase 48 U/L (38-126); Aspartate Aminotransferase 48 IU/L (17-59); Bilirubin Total 0.9 mg/dL (0.2-1.3); Blood Urea Nitrogen 23 mg/dL (9-20); Calcium 10.1 mg/dL (8.4-10.2); Carbon Dioxide 30 mmol/L (22-32); Chloride 105 mmol/L (98-107); Cholesterol 154 mg/dL (140-199); Estimated Glomerular Filt Rate > 60 mL/min (>60); Globulin 2.7 g/dL (1.7-4.1); Glucose 107 mg/dL (70-100); HDL Cholesterol 33 mg/dL (40-60); HEMOLYSIS < 15 (0-50); LDL Cholesterol Calculated 100 mg/dL (<100); Potassium 4.9 mmol/L (3.4-5.1); Sodium 141 mmol/L (137-145); Total Protein 7.5 g/dL (6.3-8.2); Triglycerides 103 mg/dL (35-150)
== END ==
PROVIDERS: PCP Family Medicine; Referring Provider Family Medicine; Visit Provider Family Medicine
DX: J98.11 Atelectasis (principal); R05.3 Chronic cough; E78.5 Hyperlipidemia, unspecified; R00.0 Tachycardia, unspecified; R73.03 Prediabetes
CPT/HCPCS: 36415; 71046; 80053; 80061

== ENCOUNTER → 2024-09-01 10:13 | Outpatient (CLI) | payer OTHER, SELFPAY ==
[2021-04-11 09:20] VITALS: BMI 43.0
[2024-09-01 11:03] LABS: COVID-19 CEPHEID 4-PLEX PCR Negative (Negative); Influenza A - CEPHEID Flu A NEGATIVE (NEGATIVE); Influenza B - CEPHEID Flu B NEGATIVE (NEGATIVE); Respiratory Syncytial Virus Negative (Negative)
== END ==
PROVIDERS: PCP Family Medicine; Visit Provider Nurse Practitioner Family
DX: R05.1 Acute cough (principal)
CPT/HCPCS: 0241U

== ENCOUNTER → 2024-09-01 10:43 | Outpatient (CLI) | payer OTHER, SELFPAY ==
[2021-04-11 09:20] VITALS: BMI 43.0
--- NOTE | 2024-09-01 10:44 | DI.RAD.S_ITS ---
PROCEDURE: XR CHEST 2V INDICATIONS: Cough TECHNIQUE: 2 views of the chest were acquired. COMPARISON: [facility], CR, XR CHEST 2V, 04/11/2024, 9:11. FINDINGS: Surgical changes and devices: None. Lungs and pleura: Lungs are clear. No pleural effusions or pneumothorax. Mediastinum: Mediastinal contours are normal. Heart size is normal. Bones and chest wall: No suspicious bony abnormalities. Soft tissues appear unremarkable. IMPRESSION: No acute cardiopulmonary abnormality is seen. Dictated by: Kervin Tinoco M.D. on 09/02/2024 at 3:42 Approved by: Kervin Tinoco M.D. on 09/02/2024 at 3:43
== END ==
LOC: RAD 10:43
PROVIDERS: PCP Family Medicine; Referring Provider Nurse Practitioner Family; Visit Provider Nurse Practitioner Family
DX: R05.1 Acute cough (principal)
CPT/HCPCS: 0241U; 71046

== ENCOUNTER 2024-09-25 10:26 | Day surgery (SDC) | payer OTHER, SELFPAY ==
[2021-04-11 09:20] VITALS: BMI 43.0
--- NOTE | 2024-09-25 | PATH_ITS ---
[facility] Accession Number: [id number] No. of containers..01 Tissue . 01 Material submitted: . colon - DESCENDING POLYP . 01 Diagnosis: DESCENDING POLYP: Tubular adenoma. [facility] 09/29/2024 1532 Local . 01 Electronically signed: . Floyd Sanchez MD, Pathologist NPI- [id number] . 01 Gross description: . Received in formalin, labeled with two identifiers and descending polyp, is a single ball soft tissue fragment measuring 0.5 cm in greatest dimension. Submitted in cassette A1. ([id number]) /FRR 09/29/2024 1532 Local . 01 Pathologist provided ICD-10: D12.4 . 01 CPT . 709231 Specimen Comment: A courtesy copy of this report has been sent to [phone] Performed at: [address] [facility] [id number] MD Floyd Sanchez MD Phone: [phone]
[2024-09-25 11:01] VITALS: BP 150/94; PULSE 95; RESP 20; TEMP 36.4; O2SAT 97
[2024-09-25] MEDS: LACTATED RINGERS 1,000 ML 42 ML IV (11:07)
--- NOTE | 2024-09-25 11:35 | PM.HP.IH.1 ---
History of Present Illness History of Present Illness Date Patient Seen: 09/25/24 Time Patient Seen: 11:35 Chief complaint: SDC Narrative: Abran is a 49-year-old man here for a screening colonoscopy, his first. No known family history of colon cancer. [facility] Medical History (Updated 09/25/24 @ 11:36 by Carlitos Villegas MD) Hx pulmonary embolism Fatigue Left upper extremity deep vein thrombosis Pulmonary embolism COVID-19 determined by clinical diagnostic criteria Poor vision Shoulder pain (~1993) Fractures (~1994) Chicken pox Kidney stones Kidney disease Hyperlipidemia Gout (~2004) Periorbital dermatitis Surgical History Anesthesia History of kidney surgery Family History Father Hypertension Hyperlipidemia Mother Diabetes mellitus Sister Mental health problem Social History household members: spouse, family and children Smoking Status: Current some day smoker alcohol intake: current substance use type: does not use Meds Home Medications and Allergies Home Medications Medication Instructions Recorded Confirmed Type febuxostat 80 mg tablet 80 mg PO DAILY 04/21/21 09/01/24 History rosuvastatin 5 mg tablet 5 mg PO DAILY #90 tabs 01/29/24 09/01/24 Rx metoprolol succinate 25 mg 12.5 mg (1/2 x 25 mg) PO DAILY #45 02/25/24 09/01/24 Rx tablet,extended release 24 hr tabs benzonatate 200 mg capsule 200 mg PO BID PRN cough #28 caps 09/01/24 09/01/24 Rx metoprolol succinate 25 mg 12.5 mg PO DAILY 09/25/24 09/25/24 History tablet,extended release 24 hr Allergies Allergy/AdvReac Type Severity Reaction Status Date / Time No Known Drug Allergies Allergy Verified 09/01/24 10:06 Exam Vital Signs (past 8 hours): - 09/25/24 11:01 Temperature 97.5 F L Pulse Rate 95 H Respiratory Rate 20 Blood Pressure 150/94 H Pulse Oximetry 97 Oxygen Delivery Method Room Air Oxygen Delivery Method Room Air Const General: No acute distress Assessment & Plan Assessment and plan (1) Colon cancer screening: Status: Acute Plan Colonoscopy Time-Based Coding :: [TOTAL MINUTES] spent with patient and on the chart (including review of chart, obtaining history, exam, reviewing outside data, placing orders, documenting exam and treatment plan, and counseling patient) on [DATE]. PROFEE Cloth Burler Document charge(s): No
--- NOTE | 2024-09-25 12:11 | PM.OP.COLON ---
Operative Date/Time/Diagnoses Date of procedure: 09/25/24 Time of procedure: 12:11 Pre-op diagnosis: Colon cancer screening Post-op diagnosis: same Procedure & Clinicians Study performed: Colonoscopy Same procedure as scheduled: Yes Surgeon: Carlitos Villegas Procedure Notes Procedure in detail: Surgeon: Carlitos Villegas MD Anesthesia: Tamika Winter CRNA Procedure: The patient was brought to the endoscopy suite, placed in left lateral decubitus position. The patient was connected to monitoring devices. A time-out was performed. Sedation was administered. Once the patient was adequately sedated, a digital rectal exam was performed and was normal. The scope was then inserted and advanced to the cecum where the appendiceal orifice was identified and photographed. The scope was then slowly withdrawn over greater than 6 minutes. The mucosa was thoroughly inspected. There was a 5 mm polyp in the descending colon removed with a cold snare. The scope was retroflexed in the rectum. No other abnormalities were found. The scope was straightened and removed. The patient was awakened and brought to recovery. Scope withdrawal time: 14 minutes Sedation time: 20 minutes EBL: 2 mL Findings: 5 mm descending colon polyp Post-procedure Disposition: PACU
[2024-09-25 12:15] VITALS: BP 116/78; PULSE 78; RESP 20; TEMP 36.1; O2SAT 97
[2024-09-25 12:25] VITALS: BP 136/88; PULSE 83; RESP 19; O2SAT 96
== END 2024-09-25 12:30 | disposition home or self-care (01) ==
PROVIDERS: PCP Family Medicine; Referring Provider Family Medicine; Visit Provider Surgery
PROC: 0DJD8ZZ Inspection of Lower Intestinal Tract, Via Natural or Artificial Opening Endoscopic (ICD-10-PCS; CPT 45378; principal; 2024-09-25 11:30)
DX: Z12.11 Encounter for screening for malignant neoplasm of colon (principal); D12.4 Benign neoplasm of descending colon; F17.210 Nicotine dependence, cigarettes, uncomplicated
CPT/HCPCS: 45385; J2704

== ENCOUNTER → 2024-11-11 10:24 | Outpatient (CLI) | payer OTHER, SELFPAY ==
[2021-04-11 09:20] VITALS: BMI 43.0
--- NOTE | 2024-11-11 10:26 | DI.RAD.S_ITS ---
PROCEDURE: XR KNEE RT 3V INDICATIONS: r/o gouty arthritis, OA TECHNIQUE: 3 views of the knee were acquired. COMPARISON: None. FINDINGS: Bones: No acute fractures or dislocations. No suspicious bony lesions. Minimal marginal osteophyte formation. No significant joint space narrowing. Soft tissues: No joint effusion. No suspicious soft tissue calcifications. IMPRESSION: No acute osseous abnormality. If there is continued clinical concern or persistent symptoms, repeat radiographs or cross-sectional imaging (e.g. CT, MRI) may be helpful for further evaluation. Approved by: Ricardo Cloud M.D. on 11/11/2024 at 10:45
== END ==
LOC: RAD 10:26
PROVIDERS: PCP Family Medicine; Referring Provider Chiropractor; Visit Provider Chiropractor
DX: S83.91XA Sprain of unspecified site of right knee, initial encounter (principal); X58.XXXA Exposure to other specified factors, initial encounter
CPT/HCPCS: 73562

== ENCOUNTER → 2024-11-19 15:19 | Outpatient (CLI) | payer OTHER, SELFPAY ==
[2021-04-11 09:20] VITALS: BMI 43.0
[2024-11-19 16:10] LABS: Add Manual Diff / Slide Review NO; Basophils Absolute Auto 100 /uL (0-100); Basophils Percent Auto 1.4 % (0-2); Eosinophils Absolute Auto 300 /uL (0-450); Hematocrit 46.7 % (41-53); Hemoglobin 16.1 g/dL (13.5-17.5); Lymphocytes Absolute Auto 2700 /uL (1100-4500); Lymphocytes Percent Auto 32.1 % (25-40); Mean Corpuscular HGB Conc 34.5 % (30-36); Mean Corpuscular Hemoglobin 30.7 PG (26-34); Monocytes Absolute Auto 800 /uL (0-900); Monocytes Percent Auto 9.3 % (3-14); Neutrophils Absolute Auto 4500 /uL (1500-7000); Neutrophils Percent Auto 54.2 % (50-75); Platelet Count 201 X10^3/uL (150-400); Red Blood Cell Count 5.24 X10^6/uL (4.5-5.9); Red Cell Distribution Width 13.9 % (11.6-14.8); White Blood Cell Count 8.3 X10^3/uL (4.5-11.0)
[2024-11-19 16:27] LABS: Uric Acid 3.3 mg/dL (3.5-8.5)
[2024-11-19 16:42] LABS: Erythrocyte Sedimentation Rate 3 MM/HR (0-15)
== END ==
PROVIDERS: PCP Family Medicine; Referring Provider Physician Assistant; Visit Provider Physician Assistant
DX: S83.91XA Sprain of unspecified site of right knee, initial encounter (principal); Y93.9 Activity, unspecified
CPT/HCPCS: 36415; 84550; 85025; 85651

== ENCOUNTER → 2024-12-19 18:23 | Outpatient (CLI) | payer OTHER, SELFPAY ==
[2021-04-11 09:20] VITALS: BMI 43.0
--- NOTE | 2024-12-19 18:24 | DI.MRI.S_ITS ---
PROCEDURE: MR KNEE RT WO CON INDICATIONS: Evaluate right knee injury TECHNIQUE: Noncontrast sagittal PD fast spin echo and T2 fast spin echo with fat saturation, sagittal 3-D FLASH with fat saturation; coronal T1 spin echo and PD fast spin echo with fat saturation, and axial PD fast spin echo with fat saturation through the knee. COMPARISON: [facility], CR, XR KNEE RT 3V, 11/11/2024, 10:21. FINDINGS: Image quality: Excellent. Menisci: Medial extrusion of the medial meniscus. Vertically oriented linear and amorphous high T2 signal intensity traverses the peripheral 3rd of the medial meniscal body, demonstrating inferior articular surface extension, indicating complex tearing. Lateral meniscus is intact. Cruciate ligaments: The anterior and posterior cruciate ligaments appear intact. Medial structures: The medial collateral ligament appears intact. Visualized portions of the pes anserinus tendons appear normal. No abnormal bursal fluid. Lateral structures: The lateral collateral ligament, long and short heads of the biceps femoris tendon appear intact. The popliteus tendon appears normal. Iliotibial band appears normal. Anterior structures: The quadriceps and patellar tendons appear intact. Patellar alignment is normal. No femoral trochlear dysplasia or ventral trochlear prominence. No edema in the infrapatellar fat pad. Bones and cartilage: No bone marrow contusions or fractures. Mild tricompartmental periarticular osteophyte formation. Moderate articular cartilage loss diffusely overlies the weight-bearing aspects of the medial femoral condyle and medial tibial plateau. Joint space: There is physiologic knee joint fluid. Trace Hastings's cyst. Normal appearing synovial plicae are incidentally noted. IMPRESSION: 1. Medial meniscal tear. 2. Medial compartment articular cartilage loss. 3. Trace Ahstings's cyst. Dictated by: Maylin Cochran M.D. on 12/22/2024 at 11:31 Approved by: Maylin Cochran M.D. on 12/22/2024 at 11:34
== END ==
LOC: MRI 18:23
PROVIDERS: PCP Family Medicine; Referring Provider Orthopaedic Surgery Adult Reconstructive Orthopaedic Surgery; Visit Provider Orthopaedic Surgery Adult Reconstructive Orthopaedic Surgery
DX: S83.231A Complex tear of medial meniscus, current injury, right knee, initial encounter (principal); S89.91XA Unspecified injury of right lower leg, initial encounter
CPT/HCPCS: 73721